=== PATIENT | male | born 1945 | race Asian ===

== ENCOUNTER 2019-07-24 07:51 | Outpatient (CLI) | payer OTHER ==
--- NOTE | 2019-07-24 10:58 | CT Report ---
Reason: TOBACCO USE Procedure Date: 07/24/2019 Accession Number: [id number] / [id number] Procedure: CT - Low Dose Lung Cancer Screen CPT Code: Final Report FULL RESULT: EXAM CT LUNG SCREEN EXAM DATE: 07/24/2019 08:31 AM. HISTORY: 73-year-old patient with 34-jeyp-walk smoking history. Currently smoking: Yes. COMPARISON: None. TECHNIQUE: CT examination of the entire thorax without contrast was performed using low-dose technique. Thin section coronal, axial, sagittal and MIP axial images were obtained. In accordance with CT protocol optimization, one or more of the following dose reduction techniques were utilized for this exam: automated exposure control, adjustment of mA and/or KV based on patient size, or use of iterative reconstructive technique. FINDINGS: Nodules: Right upper lobe: 4 mm nodule right lung apex image 30. Right middle lobe: None. Right lower lobe: 5 mm nodule along the fissure image 102. Left upper lobe: 5 mm potentially subsolid nodule image 48. Predominantly groundglass nodule 1.9 x 1.7 cm image 66. [place] of a 3 x 3 x 1.6 cm and a 1.9 x 2.0 cm groundglass nodule, appearance potentially representing atelectasis or scarring on images 76 and 77. Left lower lobe: 4 mm nodule image 110. Emphysema: Moderate. Pleura: Unremarkable. Aorta: Unremarkable. Mediastinum: Unremarkable. Coronary calcifications: None. Other pulmonary findings: There is masslike consolidation with spiculation along the medial left lung apex inseparable from the aortic arch on noncontrast examination. It is unclear whether the finding is potentially postobstructive due to a more central mass, due to scarring or represents a primary mass. Other extrapulmonary findings: Atherosclerotic disease of the aorta. IMPRESSION: Lung-RADS ASSESSMENT CATEGORY: 4X - very suspicious. Probability of malignancy: Greater than 15%. RECOMMENDATION: Recommend PET/CT for characterization of the left lung apex masslike consolidation. If this is not possible, contrast-enhanced CT of the chest should be obtained to further delineate anatomy prior to any biopsy attempt to increase safety and efficacy. RADIA
--- NOTE | 2019-07-24 13:30 | Ultrasound Report ---
Reason: TOBACCO USE Procedure Date: 07/24/2019 Accession Number: [id number] / [id number] Procedure: US - Aorta Screening CPT Code: Final Report FULL RESULT: EXAM: AORTIC DOPPLER ULTRASOUND EXAM DATE: 07/24/2019 08:23 AM. CLINICAL HISTORY: Tobacco use. COMPARISON: None. TECHNIQUE: Real-time sonographic imaging of retroperitoneal vascular structures, including color-flow, Doppler flow and spectral analysis was performed by the motor vehicle or caravan salesperson. Multiple inside technical sales representative static images were saved for review. FINDINGS: Aorta: Fusiform aneurysmal dilation of a 7.6 cm long segment of distal infrarenal abdominal aorta. Eccentric thrombus is noted in the lumen. Maximal transverse diameter measures 4.7 x 4.6 cm. Atheromatous plaques are noted. Aorta: Proximal: Sagittal AP 2.7 cm. Mid: Transverse 1.8 x 2.1 cm. Distal: Transverse 4.7 x 4.6 cm. Length of the aneurysm measures 7.6 cm. Caliber: WNL: Yes. Plaque visualized: Yes. Iliacs: Right Iliac: Transverse 2.0 x 2.5 cm. Left Iliac: Transverse 2.1 x 2.0 cm. Iliac Vessels: The visualized proximal common iliac arteries are normal in caliber. Other: None. IMPRESSION: 1. Fusiform infrarenal abdominal aortic aneurysm measures 4.7 x 4.6 cm and measures 7.6 cm in length. Recommend follow-up ultrasound in 6 months to document stability. 2. 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 (Aneurysm defined as greater than 2.5 cm in diameter). Iliac artery aneurysm/ectasia can be further evaluated at the same time is abdominal aortic aneurysm. 3. Mid and proximal aorta are normal in caliber. Atheromatous plaques are noted. RADIA
== END 2019-07-24 07:52 | disposition home or self-care (01) ==
LOC: DI 07:51
PROVIDERS: ATTEND Physician Assistant
DX: Z13.6 Encounter for screening for cardiovascular disorders (principal); Z12.2 Encounter for screening for malignant neoplasm of respiratory organs; F17.210 Nicotine dependence, cigarettes, uncomplicated
CPT/HCPCS: 76706; G0297

== ENCOUNTER 2019-07-31 14:17 | Inpatient (IN) | payer OTHER ==
--- NOTE | 2019-07-31 14:36 | ED Physician Documentation ---
History of Present Illness - Stated complaint Stated Complaint: L SIDE WEAKNESS/NUMBNESS - History obtained from History obtained from: Patient - History of Present Illness Timing: How many days ago (2) - Additonal information Additional information: This is a 73-year-old who presents with his complaints that Tuesday he was unable to lift up his left arm and has weakness in the left leg. He is pretty sure he had a stroke. [facility] come [facility] to be evaluated. Things are improving now in the left arm. No history of stroke. The patient has been getting around at home with his supporting him. He is even been going up and down the stairs even though he has weakness in the left leg. He notes that things are improving since they started because on Tuesday if he just lifted his left arm up and let it go it would drop heavily back down to the bed but now he can count is supported and drift it down. He had a headache of the day that this started 2 days ago and he is feeling dizzy when he stands up but he has not had any nausea or vomiting. One point he did fall and hit his head against the wall but he did not blackout. He denies chest pain or palpitations. No history of DVT. Review of Systems Constitutional: denies: Fever Eyes: reports: Other (Patient wears glasses). denies: Loss of vision Throat: denies: Sore throat Cardiac: denies: Chest pain / pressure, Palpitations, Pedal edema Respiratory: denies: Dyspnea, Cough GI: denies: Abdominal Pain, Nausea, Vomiting : denies: Dysuria Musculoskeletal: denies: Neck pain, Back pain Neurologic: reports: Focal weakness (Left arm and left leg weakness), Near syncope, Headache (Now resolved). denies: Confused, Altered mental status Endocrine: reports: Other (He is not diabetic) PD PAST MEDICAL HISTORY - Allergies Allergies/Adverse Reactions: Allergies Allergy/AdvReac Type Severity Reaction Status Date / Time No Known Drug Allergies Allergy Verified 07/31/19 14:31 PD ED PE NORMAL - Vitals Vital signs reviewed: Yes - General General: Alert and oriented X 3, No acute distress, Well developed/nourished - HEENT HEENT: Atraumatic - Neck Neck: No adenopathy - Cardiac Cardiac: RRR, No murmur, Strong equal pulses - Respiratory Respiratory: No respiratory distress, Clear bilaterally - Abdomen Abdomen: Normal bowel sounds, Soft - Derm Derm: Normal color, Warm and dry, No rash - Extremities Extremities: No deformity, No edema - Neuro Neuro: Alert and oriented X 3, program director scouting 2-12 intact, No sensory deficit, Normal speech, Other (He is able to platemaker my fingers with both hands. He cannot lift his left arm off the bed but if I raise it and let it go it drift slowly back down to the bed. He is able to lift the left leg off the bed, bu no thold it off the bed. He is able to lift the right leg up and keep it up for 5 seconds and the right arm for 10 seconds.) - Psych Psych: Normal mood, Normal affect Results - Vitals Vitals: Vital Signs - 24 hr 07/31/19 07/31/19 07/31/19 14:31 14:35 15:05 Temperature 37.1 C Heart Rate 72 72 69 Respiratory 22 22 14 Rate Blood Pressure 176/98 H 176/98 H 151/98 H O2 Saturation 96 96 96 Oxygen O2 Source Room air - Labs Labs: Laboratory Tests 07/31/19 07/31/19 07/31/19 14:51 14:51 14:51 WBC 8.2 RBC 4.16 L Hgb 13.3 L Hct 40.9 L MCV 98.3 H MCH 32.0 H MCHC 32.5 RDW 14.8 Plt Count 215 MPV 10.1 Neut # (Auto) 5.9 Lymph # (Auto) 1.6 [place] # (Auto) 0.5 Eos # (Auto) 0.1 Baso # (Auto) 0.0 Absolute Nucleated RBC 0.00 Nucleated RBC % 0.0 PT 12.5 INR 1.1 Sodium 138 Potassium 3.9 Chloride 103 Carbon Dioxide 23 Anion Gap 12.0 BUN 28 H Creatinine 1.6 H Estimated GFR (MDRD) 42 L Glucose 103 H Calcium 9.3 Total Bilirubin 0.6 AST 22 ALT 18 Alkaline Phosphatase 48 Total Protein 7.9 Albumin 4.4 Globulin 3.5 Albumin/Globulin Ratio 1.3 Lipase 47 - Rads (name of study) ct head Radiology: See rad report (2.8 cm right parietal infarct with mild mass-effect.) CXR Radiology: EMP read contemporaneously, See rad report (The aorta appears to be dilated. No acute infiltrate.) PD MEDICAL DECISION MAKING - ED course Complexity details: reviewed results, re-evaluated patient, d/w patient, d/w family, d/w loans consultant ED course: The patient does have some renal insufficiency. He is not anemic. He does have some left-sided deficits that he states are actually improving from their onset time on Tuesday. He certainly not a candidate for thrombolytics given the length of time that this stroke occurred. CT confirms a right parietal infarct consistent with his symptoms. Discussed with the hospitalist and the patient will be admitted for acute stroke. Results were discussed with him and his . Departure - Departure Disposition: 66 [facility] DC/Xfer Clinical Impression: Cerebrovascular accident (CVA) Qualifiers: CVA mechanism: unspecified Qualified Code(s): I63.9 - Cerebral infarction, unspecified Condition: Good Discharge Date/Time: 07/31/19 16:16
--- NOTE | 2019-07-31 14:56 | CT Report ---
Reason: neuro deficit Procedure Date: 07/31/2019 Accession Number: [id number] / [id number] Procedure: CT - Head W/O Stroke Protocol CPT Code: Final Report FULL RESULT: EXAM: CT HEAD EXAM DATE: 07/31/2019 02:41 PM. CLINICAL HISTORY: Neuro deficit. COMPARISON: None. TECHNIQUE: Multiaxial CT images were obtained from the foramen magnum to the vertex. Reformats: Sagittal and coronal. IV contrast: None. In accordance with CT protocol optimization, one or more of the following dose reduction techniques were utilized for this exam: automated exposure control, adjustment of mA and/or KV based on patient size, or use of iterative reconstructive technique. FINDINGS: Parenchyma: There is no hemorrhage. There is a 1.9 x 2.8 cm area of low density in the peripheral right parietal lobe. There are areas of low density involving white matter of the cerebral hemispheres. Extraaxial Spaces: Normal for age. No subdural or epidural collections identified. Ventricles: Normal in size and position. Sinuses and Orbits: Imaged paranasal sinuses, orbits, and mastoids show no significant abnormality. Bones: No evidence of fracture or calvarial defect. Other: None. IMPRESSION: F 1. Well-visualized 2.8 cm right parietal infarct with mild mass-effect concerning for acute infarct (imaging time estimate 2-7 days post Ictus). 2. Moderate microvascular white matter disease. RADIA The critical test notification system was initiated by Dr. Miguel Hendrix at 02:51 PM on 07/31/2019. The above critical test findings were discussed with Dr. Benedict by Dr. Miguel Hendrix at 02:55 PM on 07/31/2019.
[2019-07-31 14:57] LABS: BASOPHILS % (AUTO) 0.5 %; EOSINOPHILS # (AUTO) 0.1 10^3/uL (0.0-0.7); EOSINOPHILS % (AUTO) 1.2 %; HGB - HEMOGLOBIN 13.3 g/dL (14.0-18.0); LYMPHOCYTES # (AUTO) 1.6 10^3/uL (1.5-3.5); LYMPHOCYTES % (AUTO) 19.3 %; MEAN CORPUSCULAR HGB CONC 32.5 g/dL (32.0-36.0); MEAN CORPUSCULAR VOLUME 98.3 fL (80.0-94.0); MEAN PLATELET VOLUME 10.1 fL (7.4-11.4); MONOCYTES # (AUTO) 0.5 10^3/uL (0.0-1.0); MONOCYTES % (AUTO) 6.5 %; NEUTROPHILS # (AUTO) 5.9 10^3/uL (1.5-6.6); NEUTROPHILS % (AUTO) 72.3 %; PLT - PLATELET COUNT 215 10^3/uL (130-450); RED BLOOD COUNT 4.16 10^6/uL (4.70-6.10); RED CELL DISTRIBUTION WIDTH 14.8 % (12.0-15.0); WHITE BLOOD COUNT 8.2 x10^3/uL (4.8-10.8)
[2019-07-31 15:10] LABS: ALBUMIN 4.4 g/dL (3.2-5.5); ALBUMIN/GLOBULIN RATIO 1.3 (1.0-2.2); BILIRUBIN,TOTAL 0.6 mg/dL (0.2-1.0); CALCIUM 9.3 mg/dL (8.5-10.3); CREATININE 1.6 mg/dL (0.6-1.2); TOTAL PROTEIN 7.9 g/dL (6.7-8.2)
[2019-07-31 15:13] LABS: INR 1.1 (0.8-1.2); PT - PROTHROMBIN TIME 12.5 secs (9.9-12.6)
--- NOTE | 2019-07-31 15:28 | XRAY Report ---
Reason: chest pain Procedure Date: 07/31/2019 Accession Number: [id number] / [id number] Procedure: XR - Chest 1 View X-Ray CPT Code: 57196 Final Report FULL RESULT: EXAM: CHEST RADIOGRAPHY EXAM DATE: 07/31/2019 03:16 PM. CLINICAL HISTORY: Chest pain. COMPARISON: SHOULDER 3 VIEW LT 10/26/2018 3:11 PM CHEST SCREEN LOW DOSE W/O 07/24/2019 8:13 AM. TECHNIQUE: 1 view. FINDINGS: Lungs/Pleura: No focal opacities evident. No pleural effusion. No pneumothorax. Mediastinum: Heart size is within normal limits. There is aneurysmal dilatation of the descending thoracic aorta. Other: None. IMPRESSION: 1. Heart size is within normal limits. There is aneurysmal dilatation of the descending thoracic aorta. 2. No evidence of lobar infiltrate or effusion. 3. No pneumothorax. RADIA
[2019-07-31] MEDS ORDERED: ONDANSETRON 4 MG/2 ML VIAL IVP PRN (15:34)
[2019-07-31] MEDS ORDERED: SODIUM CHLORIDE FLUSH 0.9% 10 ML SYRINGE IVP PRN (15:34)
[2019-07-31] MEDS ORDERED: ZOLPIDEM 5 MG TABLET PO PRN (15:34)
[2019-07-31] MEDS ORDERED: hydrALAZINE INJ 20 MG/ML VIAL IVP PRN ×2 (15:41→19:29)
--- NOTE | 2019-07-31 17:14 | HISTORY & PHYSICAL EXAMINATION ---
Chief Complaint - Chief Complaint Chief Complaint: left sife weakness, stroke History of Present Illness - History of Present Illness HPI Comment/Other: This is a 73-yrs-old male with recently found pulmonary nodule and abdominal aortic aneurysm in which pt report he followup his PCP for further management, who present ER complain of left side weakness. pt report he had left side weakness and facial droop on 07/29/2019, he report he is pretty sure he had a stroke. He report [facility] come in [facility] to be evaluated. Finally he got [facility] today, then he came to hospital. He report "whole things are improving now", special in the left upper extremity. He is even been going up and down the stairs even though he has weakness in the left leg. CT of head today reveal 2.8 cm right parietal infarct. Route lab reveals pt has elevated creatinine 1.6. pt also has elevated BP otherwise pt is hemodynamic stable. He denies chest pain, back pain, abdominal pain, headache, fever, chill, or shortness of breath. pt is admitted for stroke History - Past Medical History Cardiovascular: reports: None Respiratory: reports: None Neuro: reports: CVA Endocrine/Autoimmune: reports: None GI: reports: None : reports: None HEENT: reports: None Psych: reports: None Musculoskeletal: reports: None Derm: reports: None MRSA Hx?: No - Family & Social History Family History: Mother: , Cancer, Father: , Renal Disease/Failure Family History Comment/Other: pt report his father from kidney failure, and his mother from colon cancer. pt had 7 children. Living arrangement: At home Living Situation: With spouse/s.o. Social History Notes: pt report he is still on cigarette smoker, he denies alcohol and drug issue. - POLST Patient has POLST: No Meds/Allgy - Allergies Allergies/Adverse Reactions: Allergies Allergy/AdvReac Type Severity Reaction Status Date / Time No Known Drug Allergies Allergy Verified 07/31/19 14:31 Review of Systems - Constitutional Constitutional: denies: Fatigue, Fever, Chills, Malaise, Weakness, Poor appetite, Diaphoresis, Night sweats - Eyes Eyes: denies: Pain, Irritation, Amaurosis, Blurred vision, Spots in vision, Field loss, Vision loss, Dipolpia - Ears, Nose & Throat Ears, Nose & Throat: denies: Ear pain, Hearing loss, Hearing aids, Tinnitus, Vertigo, Nasal pain, Nosebleeds, Nasal obstruction, Nasal congestion, Postnasal drainage, Mouth lesions, Bleeding gums - Cardiovascular Cariovascular: denies: Irregular heart rate, Palpitations, Chest pain, Edema, Lightheadedness, Syncope, Exertional dyspnea, Decr. exercise tolerance - Respiratory Respiratory: denies: Cough, Sputum production, Wheezing, Snoring, Hemoptysis, Orthopnea, SOB at rest, SOB with exertion - Gastrointestinal Gastrointestinal: denies: Abdominal pain, Abdominal distention, Constipation, Diarrhea, Change in bowel habits, Rectal bleeding, Black stools, Bloody stools, Nausea, Vomiting, Bile emesis, Coffee grounds emesis - Genitourinary Genitourinary: denies: Dysuria, Frequency, Urgency, Hematuria, Incontinence, F lank pain, Nocturia, Urethral discharge - Musculoskeletal Musculoskeletal: denies: Muscle pain, Back pain, Muscle aches, Stiffness, Limited range of motion, Muscle weakness, Gout, Joint pain, Joint swelling - Integumentary Integumentary: denies: Rash, Pruritis, Lesions, Dryness, Lumps, Acne, Pigment changes, Nail changes - Neurological Neurological: reports: Focal weakness, Abnormal gait. denies: General weakness, Headache, Dizziness, Numbness, Memory problems, Pre-existing deficit, Seizures, Incoordination, Slurred speech - Psychiatric Psychiatric: denies: Depression, Anxiety, Suicidal, Delusions, Hallucinations, Homicidal - Endocrine Endocrine: denies: Polyuria, Polydypsia, Polyphagia, Intolerance to cold - Hematologic/Lymphatic Hematologic/Lymphatic: denies: Anemia, Bruising, Petechiae, Blood clots, Lymphadenopathy, Bleeding tendencies Exam - Vital Signs Vital Signs: Vital Signs x48h Temp Pulse Pulse Resp BP BP Pulse Ox 07/31/19 16:22 36.5 C 74 24 171/96 H 98 07/31/19 16:00 69 18 170/100 H 96 07/31/19 15:05 69 14 151/98 H 96 07/31/19 14:35 72 22 176/98 H 96 07/31/19 14:31 37.1 C 72 22 176/98 H 96 - Physical Exam General Appearance: positive: No acute distress, Alert. negative: Lethargic Eyes Bilateral: positive: Normal inspection, PERRL, No lid inflammation ENT: positive: ENT inspection nml, Pharynx nml, No signs of dehydration. negative: Purulent nasal drainage Neck: positive: Nml inspection, Thyroid nml, No JVD, Trachea midline. negative: Thyromegaly, Lymphadenopathy (R), Lymphadenopathy (L), Stiff neck, Tracheal deviation Respiratory: positive: Chest non-tender, No respiratory distress, Breath sounds nml. negative: Wheezes, Rales, Rhonchi Cardiovascular: positive: Regular rate & rhythm, No murmur, No gallop. negative: Irregularly irregular, Extrasystoles, Tachycardia, Bradycardia, JVD present, Systolic murmur, Diastolic murmur Peripheral Pulses: positive: 2+ Abdomen: positive: Non-tender, No organomegaly, Nml bowel sounds, No distention. negative: Tenderness, Guarding, Rebound Back: positive: Nml inspection. negative: CVA tenderness (R), CVA tenderness (L) Skin: positive: Color nml, No rash, Warm, Dry. negative: Cyanosis, Diaphoresis, Pallor Extremities: positive: Non-tender, Nml appearance. negative: Full ROM, No pedal edema, Pedal edema, Calf tenderness, Gerry's sign/cords Neurologic/Psychiatric: positive: Oriented x3, Mood/affect nml, Weakness, Sensory loss. negative: Motor nml, Sensation nml, Facial droop, Slurred/abnml speech, Depressed mood/affect Sepsis Event Note (H) - Evaluation Current Stage of Sepsis: Ruled out Conclusion/Plan - Problem List (1) Cerebrovascular accident (CVA) Conclusion/Plan: pt present persistent left side weakness. unfortunately this happened three days ago. CT of head reveals right parietal infarct. order: ECHO, US of carotid since pt's GFR is lower, not for CTA. and MRI of brain start Aspirin, Plavix and Lipitor consult with PT/OT check Lipid panel and lab monitor Qualifiers: CVA mechanism: unspecified Qualified Code(s): I63.9 - Cerebral infarction, unspecified (2) Hx of aneurysm Conclusion/Plan: pt had US and CT of chest done on 07/24/2019 by his PCP which found 4.7 cm AAA aneurysm with mild and proximal aorta are normal, recommended to pt followup in 6 months. pt report he knew this information, and will followup the appointment. (3) Hx of multiple pulmonary nodules Conclusion/Plan: pt had CT of chest done on 07/24/2019 by his PCP which found pt had multiple nodules in bilateral lung. pt report he knew this information, and will followup PCP for further management. (4) Current smoker Conclusion/Plan: pt report he is still in smoking. Nicotine Patch is ordered (5) HTN (hypertension) Conclusion/Plan: pt has slight elevated BP, it is likely caused by his acute stroke. allow BP rise, add hydrazaline PRN but will control BP because pt has AAA as well. (6) CKD (chronic kidney disease) stage 3, GFR 30-59 ml/min Conclusion/Plan: pt is not well known he has CKD but he report "he heard". his creatinine is 1.6 today. will hydration with IVF of NS, and lab monitor (7) Full code status Conclusion/Plan: pt request full code - Lab Results Fish Bones: 08/01/19 05:05 08/01/19 05:05 Core Measures - Anticipated LOS I expect patient to be DC'd or transferred within 96 hours.: Yes - DVT/VTE - Prophylaxis VTE/DVT Device ordered at admit?: Yes VTE/DVT Prophylaxis med ordered at admit?: Yes
[2019-07-31] MEDS: ASPIRIN CHEW 81 MG TABLET PO SCH (17:17)
[2019-07-31] MEDS: amLODIPine 5 MG TABLET PO SCH (17:17)
[2019-07-31] MEDS: CLOPIDOGREL 75 MG TABLET PO SCH (17:17)
[2019-07-31] MEDS: SODIUM CHLORIDE 0.9% 1,000 ML IV SCH (17:17)
[2019-07-31] MEDS: SODIUM CHLORIDE FLUSH 0.9% 10 ML SYRINGE IVP SCH ×2 (17:18→23:23)
--- NOTE | 2019-07-31 20:28 | MRI Report ---
Reason: stroke Procedure Date: 07/31/2019 Accession Number: [id number] / [id number] Procedure: MRI - Brain W/O CPT Code: Final Report FULL RESULT: EXAM: MRI BRAIN WITHOUT CONTRAST EXAM DATE: 07/31/2019 07:29 PM. CLINICAL HISTORY: Stroke. Right parietal stroke noted on CT scan. COMPARISON: HEAD W/O STROKE PROTOCOL 07/31/2019 2:41 PM. TECHNIQUE: Multiplanar, multisequence T1-weighted and fluid-sensitive MR sequences of the brain were performed. Sequences optimized for routine evaluation. Other: None. IV Contrast: None. FINDINGS: (Study is somewhat limited by motion artifact.) Brain Volume: Normal for age. Parenchyma/Dura: Cortical and subcortical acute infarct is seen in the posterolateral right parietal lobe with patchy extension into the paracentral lobule. Subtle mild inferior extension posteriorly into the superior occipital lobe is seen. Punctate cortical extension superomedially into the high medial paracentral lobule is seen. Otherwise, mild confluent periventricular with scattered punctate deep white matter T2/FLAIR bright signal is seen in the cerebral hemispheres. There is an oval 6 mm cystic focus in the anterior body of the right caudate nucleus. No intracranial mass or hemorrhage is appreciated. Ventricles/Cisterns: No hydrocephalus. No abnormal extra-axial fluid collection or hemorrhage. No shift of midline structures. Orbits: Unremarkable. Sella [place]: Unremarkable. IAC: Unremarkable. Vasculature: Normal signal flow void is seen in the major arterial structures at the skull base. Sinuses: No acute appearing sinus disease. Bones: No focal pathologic appearing marrow signal changes. Other: None. IMPRESSION: (Study somewhat limited by motion artifact.) 1. Acute infarct in posterior division right MCA territory involving the posterolateral parietal lobe with patchy extension to the high paracentral lobule. Minimal inferior extension posteriorly into the superior occipital lobe is noted, which may be SENIOR BIOINFORMATICS SPECIALIST vascular territory. Apparent punctate superomedial extension in the high medial paracentral lobule is noted as well, which may be distal DYLON vascular territory. This may be secondary to embolic source. 2. Mild white matter T2/FLAIR bright white matter signal seen in the cerebral hemispheres. This is nonspecific. This can be seen secondary to small vessel ischemic change. 3. Oval 6 mm cystic focus in the anterior body of the right caudate nucleus. This is consistent with old lacunar infarct. RADIA
[2019-07-31] MEDS: ACETAMINOPHEN 325 MG TABLET PO PRN (20:55)
[2019-07-31] MEDS: FAMOTIDINE 20 MG TABLET PO SCH (20:55)
[2019-07-31] MEDS ORDERED: ATORVASTATIN 40 MG TABLET PO SCH (21:00)
--- NOTE | 2019-08-01 00:09 | Ultrasound Report ---
Reason: stroke Procedure Date: 07/31/2019 Accession Number: [id number] / [id number] Procedure: US - Carotid Doppler Complete CPT Code: Final Report FULL RESULT: EXAM: BILATERAL CAROTID AND VERTEBRAL ARTERY DUPLEX DOPPLER ULTRASOUND. EXAM DATE: 07/31/2019 11:20 PM. CLINICAL HISTORY: Stroke. COMPARISON: None. TECHNIQUE: Grayscale imaging, color Doppler, and duplex spectral Doppler were used to evaluate the carotid and vertebral arteries bilaterally. Static images were obtained. FINDINGS: Mild plaquing in the common carotid arteries, carotid bifurcations, and proximal internal carotid arteries bilaterally. Normal antegrade flow is present in bilateral vertebral arteries. VELOCITIES (cm/sec): Right CCA mid: PSV 37 cm/sec CCA dist: PSV 58 cm/sec ICA prox: PSV 129 cm/sec, EDV 27 cm/sec ICA mid: PSV 97 cm/sec, EDV 33 cm/sec ICA dist: PSV 103 cm/sec, EDV 30 cm/sec ECA: PSV 75 cm/sec Vert: PSV 34 cm/sec ICA/CCA: 2.2 Left CCA mid: PSV 68 cm/sec CCA dist: PSV 54 cm/sec ICA prox: PSV 86 cm/sec, EDV 28 cm/sec ICA mid: PSV 88 cm/sec, EDV 29 cm/sec ICA dist: PSV 56 cm/sec, EDV 20 cm/sec ECA: PSV 67 cm/sec Vert: PSV 31 cm/sec ICA/CCA: 1.3 ICA diameter stenosis: Right: 50-69% by velocity and <70% by NASCET criteria. Left: <50% by velocity and <70% by NASCET criteria. IMPRESSION: 1. Mild bilateral carotid artery plaquing. 2. In the proximal right internal carotid artery there is slightly elevated velocity and systolic velocity ratio consistent with 50-69% stenosis. This could also be artifact related to tortuosity. 3. In the left carotid artery there are no elevated carotid artery velocities to suggest hemodynamically significant stenosis. 4. Normal antegrade flow is present in bilateral vertebral arteries. General Recommendations: Stenosis =50% ICA - Follow-up ultrasound 6-12 months Stenosis <50% ICA - High Risk Patient with plaque - Follow-up ultrasound 1-2 years Normal Study but High Risk Patient - Follow-up ultrasound 3-5 years Management recommendations and diagnostic criteria are based on current IAC endorsed standards in Carotid Artery Stenosis: Grayscale and Doppler Ultrasound Diagnosis. Validated velocity measurements with angiographic measurements and velocity criteria are extrapolated from diameter data as defined by the Society of Radiologists in Ultrasound Consensus Conference Radiology 2003; 229;340-346. RADIA
[2019-08-01] MEDS: SODIUM CHLORIDE 0.9% 1,000 ML IV SCH (04:16)
[2019-08-01 05:34] LABS: BASOPHILS % (AUTO) 0.3 %; EOSINOPHILS # (AUTO) 0.3 10^3/uL (0.0-0.7); EOSINOPHILS % (AUTO) 3.2 %; HGB - HEMOGLOBIN 12.2 g/dL (14.0-18.0); LYMPHOCYTES % (AUTO) 22.3 %; MEAN CORPUSCULAR HEMOGLOBIN 31.3 pg (27.0-31.0); MEAN CORPUSCULAR HGB CONC 32.8 g/dL (32.0-36.0); MEAN CORPUSCULAR VOLUME 95.4 fL (80.0-94.0); MEAN PLATELET VOLUME 9.4 fL (7.4-11.4); MONOCYTES # (AUTO) 0.7 10^3/uL (0.0-1.0); MONOCYTES % (AUTO) 8.2 %; NEUTROPHILS # (AUTO) 5.7 10^3/uL (1.5-6.6); NEUTROPHILS % (AUTO) 65.7 %; PLT - PLATELET COUNT 169 10^3/uL (130-450); RED CELL DISTRIBUTION WIDTH 14.5 % (12.0-15.0); WHITE BLOOD COUNT 8.7 x10^3/uL (4.8-10.8)
[2019-08-01 05:53] LABS: CALCIUM 8.8 mg/dL (8.5-10.3); CHOLESTEROL 114 mg/dL; CREATININE 1.5 mg/dL (0.6-1.2); HDL CHOLESTEROL 38 mg/dL; LDL CHOLESTEROL,CALCULATED 60 mg/dL; LDL/HDL RATIO 1.6 (<3.6); MAGNESIUM 2.1 mg/dL (1.7-2.8); VLDL CHOLESTEROL 16 mg/dL
[2019-08-01] MEDS: ACETAMINOPHEN 325 MG TABLET PO PRN (06:39)
[2019-08-01] MEDS: FAMOTIDINE 20 MG TABLET PO SCH (08:07)
[2019-08-01] MEDS: amLODIPine 5 MG TABLET PO SCH (08:07)
[2019-08-01] MEDS: ASPIRIN CHEW 81 MG TABLET PO SCH (08:07)
[2019-08-01] MEDS: CLOPIDOGREL 75 MG TABLET PO SCH (08:07)
[2019-08-01] MEDS: SODIUM CHLORIDE FLUSH 0.9% 10 ML SYRINGE IVP SCH (08:08)
[2019-08-01] MEDS ORDERED: NICOTINE 14 MG PATCH TOP SCH (12:00)
[2019-08-01] MEDS ORDERED: hydrALAZINE INJ 20 MG/ML VIAL IVP PRN (13:07)
--- NOTE | 2019-08-01 13:23 | Discharge Plan ---
Discharge Plan Problem Reviewed?: Yes Disposition: Home, Self Care Condition: Poor Prescriptions: Aspirin Chewable [St Ernie Aspirin] 81 mg PO DAILY #10 tablet Atorvastatin [Lipitor] 40 mg PO QPM #10 tablet Clopidogrel [Plavix] 75 mg PO DAILY #10 tablet Diet: Regular Activity Restrictions: Activity as Tolerated Shower Restrictions: Yes (fall precaution) Assistance Devices: Walker Instruction Topics: Atorvastatin tablets, Clopidogrel Bisulfate Oral tablet, Atherosclerosis Aspirin Health Concerns: stroke, pulmonary nodules and AAA Plan of Treatment: you was found to have stroke. Per PT/OT evaluation and treatment, you recovered well from stroke, and you can be d/c today. you is prescribed walker, and three medication, Aspirin, Plavix, and Lipitor for your stroke, and recommended you followup out-pt PT/OT. you report he had the schedule to followup your PCP for continuing monitor and management for your pulmonary nodules, and aorta aneurysm. advise you followup closely. Care Goals: stabilization and improvement of your medical conditions. Assessment: discussed with you and your about the care plan, you understood. Additional Instructions or Follow Up instructions: you may followup your PCP in one week, followup entry level buyer and vascular surgeon as out-pt. Should your symptoms return or worsen, you may present ER or call 911 for help. Follow-Up Care: Outpatient Rehab - PT, Outpatient Rehab - OT No Smoking: If you smoke, Please STOP! Call for help. Follow-up with: JYOTHI CARDONA NP [Primary Care Provider] -
[2019-08-01 14:03] VITALS: BP 156/82
--- NOTE | 2019-08-01 14:08 | DISCHARGE SUMMARY ---
Discharge Summary Admit Date: 07/31/19 Discharge Date: 08/01/19 Discharging Provider: Huang Somers Condition at Discharge: Poor Discharge Disposition: Home, Self Care Discharge Facility Name: home - DIAGNOSES Admission Diagnoses: (1) Cerebrovascular accident (CVA) (2) Hx of aneurysm (3) Hx of multiple pulmonary nodules (4) Current smoker (5) HTN (hypertension) (6) CKD (chronic kidney disease) stage 3, GFR 30-59 ml/min Discharge Diagnoses with Status of Each Condition: (1) Cerebrovascular accident (CVA) stable. pt recovered very well from his stroke. the only focal neurological de ficit remain from this stroke is he present slight weakness on his left lower extremity. PT/OT had evaluation and treatment for pt, and recommend pt can be d/c to home. pt is prescribed walker. pt is prescribed Aspirin, Plavix and lipitor. (2) Hx of aneurysm stable. pt is advised to followup his PCP and vascular surgeon to continue management. he had appointment to followup per pt's report. (3) Hx of multiple pulmonary nodules stable. pt is advised to followup his PCP and vascular surgeon to continue management. he had appointment to followup per pt's report. (4) Current smoker advise pt quit (5) HTN (hypertension) stable (6) CKD (chronic kidney disease) stage 3, GFR 30-59 ml/min stable - HPI History of Present Illness: This is a 73-yrs-old male with recently found pulmonary nodule and abdominal aortic aneurysm in which pt report he followup his PCP for further management, who present ER complain of left side weakness. pt report he had left side weakness and facial droop on 07/29/2019, he report he is pretty sure he had a stroke. He report [facility] to be [facility]. Finally he [facility] today, then he came to hospital. He report "whole things are improving now", special in the left upper extremity. He is even been going up and down the stairs even though he has weakness in the left leg. CT of head today reveal 2.8 cm right parietal infarct. Route lab reveals pt has elevated creatinine 1.6. pt also has elevated BP otherwise pt is hemodynamic stable. He denies chest pain, back pain, abdominal pain, headache, fever, chill, or shortness of breath. pt is admitted for stroke - HOSPITAL COURSE Hospital Course: pt was found to have left side weakness started from three days ago. pt was found to have stroke on CT and MRI of brain. pt's ECHO was unremarkable. pt recovered from his stroke very well. the only focal neurological deficit remain from this stroke is he present slight weakness on his left lower extremity. PT/OT had evaluation and treatment for pt, and recommend pt can be d/c to home. pt is prescribed walker. pt is prescribed Aspirin, Plavix and lipitor. the detail hospital course is as the below (1) Cerebrovascular accident (CVA) stable. pt recovered very well from his stroke. the only focal neurological deficit remain from this stroke is he present slight weakness on his left lower extremity. PT/OT had evaluation and treatment for pt, and recommend pt can be d/c to home. pt is prescribed walker. pt is prescribed Aspirin, Plavix and lipitor. (2) Hx of aneurysm stable. pt is advised to followup his PCP and vascular surgeon to continue management. he had appointment to followup per pt's report. (3) Hx of multiple pulmonary nodules stable. pt is advised to followup his PCP and vascular surgeon to continue management. he had appointment to followup per pt's report. (4) Current smoker advise pt quit (5) HTN (hypertension) stable (6) CKD (chronic kidney disease) stage 3, GFR 30-59 ml/min stable - ALLERGIES Allergies/Adverse Reactions: Allergies Allergy/AdvReac Type Severity Reaction Status Date / Time No Known Drug Allergies Allergy Verified 07/31/19 14:31 - MEDICATIONS Home Medications: Ambulatory Orders Medication Instructions Recorded Confirmed Alfuzosin HCl [Alfuzosin HCl ER] 10 mg PO DAILY 08/01/19 08/01/19 Allopurinol [Zyloprim] 300 mg PO DAILY 08/01/19 08/01/19 Aspirin Chewable [St Ernie 81 mg PO DAILY #10 tablet 08/01/19 Aspirin] Atorvastatin [Lipitor] 40 mg PO QPM #10 tablet 08/01/19 Clopidogrel [Plavix] 75 mg PO DAILY #10 tablet 08/01/19 Metoprolol Succinate [Toprol Xl] 100 mg PO DAILY 08/01/19 08/01/19 - PHYSICAL EXAM AT DISCHARGE General Appearance: positive: No acute distress, Alert. negative: Lethargic Eyes Bilateral: positive: Normal inspection, PERRL, EOMI, No lid inflammation ENT: positive: ENT inspection nml, Pharynx nml, No signs of dehydration. negative: Purulent nasal drainage Neck: positive: Nml inspection, Thyroid nml, No JVD, Trachea midline. negative: Thyromegaly, Lymphadenopathy (R), Lymphadenopathy (L), Stiff neck, Tracheal deviation Respiratory: positive: Chest non-tender, No respiratory distress, Breath sounds nml. negative: Wheezes, Rales, Rhonchi Cardiovascular: positive: Regular rate & rhythm, No murmur, No gallop. negative: Irregularly irregular, Extrasystoles, Tachycardia, Bradycardia, JVD present, Systolic murmur, Diastolic murmur Peripheral Pulses: positive: 2+ Abdomen: positive: Non-tender, No organomegaly, Nml bowel sounds, No distention. negative: Tenderness, Guarding, Rebound Back: positive: Nml inspection. negative: CVA tenderness (R), CVA tenderness (L) Skin: positive: Color nml, No rash, Warm, Dry. negative: Cyanosis, Diaphoresis, Pallor Extremities: positive: Non-tender, Nml appearance. negative: Calf tenderness, Gerry's sign/cords Neurologic/Psychiatric: positive: Oriented x3, Sensation nml, Mood/affect nml, Weakness. negative: Motor nml, Sensory loss, Facial droop, Slurred/abnml speech, Depressed mood/affect - LABS Result Diagrams: 08/01/19 05:05 08/01/19 05:05 - SEPSIS Current Stage of Sepsis: Ruled out - FOLLOW UP Follow Up: you was found to have stroke. Per PT/OT evaluation and treatment, you recovered well from stroke, and you can be d/c today. you is prescribed walker, and three medication, Aspirin, Plavix, and Lipitor for your stroke, and recommended you followup out-pt PT/OT. you report he had the schedule to followup your PCP for continuing monitor and management for your pulmonary nodules, and aorta aneurysm. advise you followup closely. you may followup your PCP in one week, followup medical recruiter and vascular surgeon as out-pt. Should your symptoms return or worsen, you may present ER or call 911 for help. - TIME SPENT Time Spent in Discharge (Minutes): 40
== END 2019-08-01 14:48 | disposition home or self-care (01) | DRG 65 ==
LOC: ED 14:17 → MS2 15:34
PROVIDERS: ADMIT Nurse Practitioner Gerontology; ATTEND Nurse Practitioner Gerontology
DX: I63.511 Cerebral infarction due to unspecified occlusion or stenosis of right middle cerebral artery (principal); G81.94 Hemiplegia, unspecified affecting left nondominant side; R29.810 Facial weakness; I12.9 Hypertensive chronic kidney disease with stage 1 through stage 4 chronic kidney disease, or unspecified chronic kidney disease; N18.3 Chronic kidney disease, stage 3 (moderate); I71.2 Thoracic aortic aneurysm, without rupture; R91.8 Other nonspecific abnormal finding of lung field; F17.210 Nicotine dependence, cigarettes, uncomplicated; R90.82 White matter disease, unspecified
CPT/HCPCS: 36415; 70450; 70551; 71045; 80048; 80053; 80061; 83690; 83735; 85025; 85610; 93005; 93306; 93880; 97116; 97162; 97165; 99284; 99285; 99406; A9270; 83721

== ENCOUNTER 2022-02-09 08:43 | Observation (INO) | payer OTHER ==
[2022-02-09] MEDS ORDERED: AZITHROMYCIN INJ 500 MG in SODIUM CHLORIDE 0.9% 250 ML IV STA (08:50)
[2022-02-09] MEDS ORDERED: cefTRIAXone 1 GM in SODIUM CHLORIDE 0.9% MINIBAG 100 ML IV STA (08:50)
[2022-02-09] MEDS ORDERED: ACETAMINOPHEN 325 MG TABLET PO STA (08:51)
--- NOTE | 2022-02-09 08:51 | ED Physician Documentation ---
History of Present Illness - Stated complaint Stated Complaint: GENERAL WEAKNESS - Chief complaint Chief Complaint: Neuro - History obtained from History obtained from: Patient - History of Present Illness Timing: How many days ago (4) - Additonal information Additional information: 76-year-old male with history of hepatitis B, hypertension, hyperlipidemia, pre vious history of CVA without residual deficit presents by EMS from home for approximately 4 days of gradually worsening generalized weakness. Associated productive cough with brown sputum. Today the patient was unable to move around his house without assistance and so his called 911. In route the patient was febrile, oxygen saturation stable. at bedside states that the patient has had troubles in breathing since yesterday, and was making gasping, wheezing noises at home.Patient states that he feels fatigued all over. Denies chest pain, leg swelling, syncope, headache, blurred vision, other complaints at this time. Review of Systems Ten Systems: 10 systems reviewed and negative Constitutional: reports: Fever, Chills. denies: Myalgias Eyes: denies: Loss of vision, Decreased vision, Photophobia Ears: denies: Loss of hearing, Ear pain, Drainage/discharge Respiratory: reports: Dyspnea, Cough, Wheezing. denies: Hemoptysis GI: denies: Abdominal Pain, Abdominal Swelling, Nausea, Vomiting, Constipation, Diarrhea, Hematemesis Neurologic: reports: Generalized weakness. denies: Focal weakness, Numbness, Difficulty speaking, Near syncope PD PAST MEDICAL HISTORY - Past Medical History Cardiovascular: None Respiratory: None Neuro: None Endocrine/Autoimmune: None GI: None : None HEENT: None Psych: None Musculoskeletal: None Derm: None - Past Surgical History Past Surgical History: No - Present Medications Home Medications: Ambulatory Orders Medication Instructions Recorded Confirmed Alfuzosin HCl [Alfuzosin HCl ER] 10 mg PO DAILY 08/01/19 02/09/22 Aspirin Chewable [St Ernie 81 mg PO DAILY #10 tablet 08/01/19 02/09/22 Aspirin] Atorvastatin [Lipitor] 40 mg PO QPM #10 tablet 08/01/19 02/09/22 Clopidogrel [Plavix] 75 mg PO DAILY #10 tablet 08/01/19 02/09/22 Metoprolol Succinate [Toprol Xl] 100 mg PO DAILY 08/01/19 02/09/22 allopurinoL [Zyloprim] 300 mg PO DAILY 08/01/19 02/09/22 Ascorbic Acid [Vitamin C] 500 mg PO BID 02/09/22 02/09/22 Cholecalciferol (Vitamin D3) 1,000 units PO DAILY 02/09/22 02/09/22 [Vitamin D3] Entecavir 0.5 mg PO UD 02/09/22 02/09/22 - Allergies Allergies/Adverse Reactions: Allergies Allergy/AdvReac Type Severity Reaction Status Date / Time No Known Drug Allergies Allergy Verified 07/31/19 14:31 - Social History Does the pt smoke?: No Smoking Status: Current every day smoker Does the pt drink ETOH?: No Does the pt have substance abuse?: No - Immunizations Immunizations are current?: Yes - POLST Patient has POLST: No PD ED PE NORMAL - Vitals Vital signs reviewed: Yes - General General: Alert and oriented X 3, Well developed/nourished, Other (ill appearing) - HEENT HEENT: Atraumatic, PERRL, EOMI, Ears normal, Other (dry mucous membranes) - Neck Neck: Supple, no meningeal sign, No bony TTP, No JVD - Cardiac Cardiac: No murmur, Strong equal pulses, Other (tachycardia) - Respiratory Respiratory: Clear bilaterally, Other (tachypnea) - Abdomen Abdomen: Soft, Non tender, Non distended - Back Back: No CVA TTP, No spinal TTP - Derm Derm: Normal color, Warm and dry, No rash - Extremities Extremities: No deformity, No tenderness to palpate, Normal ROM s pain, No edema - Neuro Neuro: Alert and oriented X 3, fabricator foam rubber 2-12 intact, No motor deficit, No sensory deficit, Normal speech - Psych Psych: Normal mood, Normal affect Results - Vitals Vitals: Vital Signs - 24 hr 02/09/22 02/09/22 02/09/22 08:49 09:25 10:26 Temperature 39.2 C H 38.7 C H Heart Rate 81 67 69 Respiratory 28 H 18 26 H Rate Blood Pressure 138/101 H 143/78 H O2 Saturation 94 97 99 Oxygen O2 Source Nasal cannula Oxygen Flow Rate 2 - EKG (time done) 1018 Rate: Rate (enter#) (65) Rhythm: NSR [place]: Normal Intervals: Normal [place] QRS: Normal - Labs Labs: Laboratory Tests 02/09/22 02/09/22 02/09/22 08:50 09:10 09:10 WBC 12.6 H RBC 3.14 L Hgb 10.3 L Hct 30.9 L MCV 98.4 H MCH 32.8 H MCHC 33.3 RDW 14.9 Plt Count 141 MPV 9.5 Neut # (Auto) 10.1 H Lymph # (Auto) 1.2 L [place] # (Auto) 1.1 H Eos # (Auto) 0.1 Baso # (Auto) 0.0 Absolute Nucleated RBC 0.00 Nucleated RBC % 0.0 PT 11.7 INR 1.0 Sodium Potassium Chloride Carbon Dioxide Anion Gap BUN Creatinine Estimated GFR (MDRD) Glucose Calcium Total Bilirubin AST ALT Alkaline Phosphatase Troponin I High Sens B-Natriuretic Peptide 235 H Total Protein Albumin Globulin Albumin/Globulin Ratio Procalcitonin Urine Color Urine Clarity Urine pH Ur Specific [place] Urine Protein Urine Glucose (UA) Urine Ketones Urine Occult Blood Urine Nitrite Urine Bilirubin Urine Urobilinogen Ur Leukocyte Esterase Urine RBC Urine WBC Ur Squamous Epith Cells Urine Bacteria Ur Microscopic Review Urine Culture Comments Nasal Adenovirus (PCR) Nasal B. parapertussis DNA (PCR) Nasal Coronavir 229E PCR Nasal Coronavir HKU1 PCR Nasal Coronavir NL63 PCR Nasal Coronavir OC43 PCR Nasal Enterovir/Rhinovir PCR Nasal Influenza B PCR Nasal Influenza A PCR Nasal Parainfluen 1 PCR Nasal Parainfluen 2 PCR Nasal Parainfluen 3 PCR Nasal Parainfluen 4 PCR Nasal RSV (PCR) Nasal B.pertussis DNA PCR Nasal C.pneumoniae (PCR) Alber Human Metapneumo PCR Nasal M.pneumoniae (PCR) Nasal SARS-CoV-2 (PCR) 02/09/22 02/09/22 02/09/22 09:10 09:10 09:10 WBC RBC Hgb Hct MCV MCH MCHC RDW Plt Count MPV Neut # (Auto) Lymph # (Auto) [place] # (Auto) Eos # (Auto) Baso # (Auto) Absolute Nucleated RBC Nucleated RBC % PT INR Sodium 139 Potassium 4.1 Chloride 109 Carbon Dioxide 20 L Anion Gap 10.0 BUN 28 H Creatinine 2.6 H Estimated GFR (MDRD) 24 L Glucose 117 H Calcium 8.9 Total Bilirubin 0.5 AST 24 ALT 15 Alkaline Phosphatase 50 Troponin I High Sens 16.1 B-Natriuretic Peptide Total Protein 7.4 Albumin 4.2 Globulin 3.2 Albumin/Globulin Ratio 1.3 Procalcitonin 0.17 Urine Color Urine Clarity Urine pH Ur Specific [place] Urine Protein Urine Glucose (UA) Urine Ketones Urine Occult Blood Urine Nitrite Urine Bilirubin Urine Urobilinogen Ur Leukocyte Esterase Urine RBC Urine WBC Ur Squamous Epith Cells Urine Bacteria Ur Microscopic Review Urine Culture Comments Nasal Adenovirus (PCR) Nasal B. parapertussis DNA (PCR) Nasal Coronavir 229E PCR Nasal Coronavir HKU1 PCR Nasal Coronavir NL63 PCR Nasal Coronavir OC43 PCR Nasal Enterovir/Rhinovir PCR Nasal Influenza B PCR Nasal Influenza A PCR Nasal Parainfluen 1 PCR Nasal Parainfluen 2 PCR Nasal Parainfluen 3 PCR Nasal Parainfluen 4 PCR Nasal RSV (PCR) Nasal B.pertussis DNA PCR Nasal C.pneumoniae (PCR) Alber Human Metapneumo PCR Nasal M.pneumoniae (PCR) Nasal SARS-CoV-2 (PCR) 02/09/22 02/09/22 09:20 09:23 WBC RBC Hgb Hct MCV MCH MCHC RDW Plt Count MPV Neut # (Auto) Lymph # (Auto) [place] # (Auto) Eos # (Auto) Baso # (Auto) Absolute Nucleated RBC Nucleated RBC % PT INR Sodium Potassium Chloride Carbon Dioxide Anion Gap BUN Creatinine Estimated GFR (MDRD) Glucose Calcium Total Bilirubin AST ALT Alkaline Phosphatase Troponin I High Sens B-Natriuretic Peptide Total Protein Albumin Globulin Albumin/Globulin Ratio Procalcitonin Urine Color YELLOW Urine Clarity CLEAR Urine pH 5.5 Ur Specific [place] 1.015 Urine Protein TRACE Urine Glucose (UA) NEGATIVE Urine Ketones NEGATIVE Urine Occult Blood SMALL H Urine Nitrite NEGATIVE Urine Bilirubin NEGATIVE Urine Urobilinogen 0.2 (NORMAL) Ur Leukocyte Esterase NEGATIVE Urine RBC 0-5 Urine WBC 0-3 Ur Squamous Epith Cells RARE Squamous Urine Bacteria Rare Ur Microscopic Review INDICATED Urine Culture Comments NOT INDICATED Nasal Adenovirus (PCR) NOT DETECTED Nasal B. parapertussis DNA (PCR) NOT DETECTED Nasal Coronavir 229E PCR NOT DETECTED Nasal Coronavir HKU1 PCR NOT DETECTED Nasal Coronavir NL63 PCR NOT DETECTED Nasal Coronavir OC43 PCR NOT DETECTED Nasal Enterovir/Rhinovir PCR NOT DETECTED Nasal Influenza B PCR NOT DETECTED Nasal Influenza A PCR NOT DETECTED Nasal Parainfluen 1 PCR NOT DETECTED Nasal Parainfluen 2 PCR NOT DETECTED Nasal Parainfluen 3 PCR NOT DETECTED Nasal Parainfluen 4 PCR NOT DETECTED Nasal RSV (PCR) NOT DETECTED Nasal B.pertussis DNA PCR NOT DETECTED Nasal C.pneumoniae (PCR) NOT DETECTED Alber Human Metapneumo PCR NOT DETECTED Nasal M.pneumoniae (PCR) NOT DETECTED Nasal SARS-CoV-2 (PCR) DETECTED A PD MEDICAL DECISION MAKING - ED course Complexity details: reviewed results, re-evaluated patient, considered differential, d/w patient ED course: And ill-appearing male presenting for fever, cough, shortness of breath. Saturating well on room air, nasal cannula applied for comfort. Will empirically treat for sepsis with Rocephin and azithromycin. Patient appears dehydrated, generous fluid started. Chest x-ray surprisingly negative for acute findings. Patient has been given Tylenol for fever, it is slowly coming down. Vital signs improving with IV fluids. Labs are significant for leukocytosis, creatinine 2.6. Only previous values in her systems are from 2 years ago, patient and his deny ever having problems with his kidneys and states they have never been told the patient has kidney disease. Given that the patient presented appearing severely dehydrated we will presume this is acute. We will admit the patient for further IV hydration and treatment. Departure - Departure Disposition: 66 [facility] DC/Xfer Clinical Impression: Dehydration, COVID, BARRETT (acute kidney injury) Condition: Stable Discharge Date/Time: 02/09/22 12:07
--- NOTE | 2022-02-09 09:06 | XRAY Report ---
PROCEDURE: Chest 1 View X-Ray INDICATIONS: fever, cough TECHNIQUE: One view of the chest was acquired. COMPARISON: 07/31/2019 FINDINGS: Surgical changes and devices: None. Lungs and pleura: No pleural effusions or pneumothorax. Lungs are clear. Mediastinum: Similar mediastinal widening suggesting tortuosity, aneurysm or ectasia of the thoracic aorta. Heart size is within normal limits. Bones and chest wall: No suspicious bony lesions. Overlying soft tissues appear unremarkable. IMPRESSION: No pulmonary consolidation. Similar mediastinal widening suggesting tortuosity, aneurysm or ectasia o f the thoracic aorta. Reviewed by: Clark Quintero MD on 02/09/2022 9:04 AM PDT Approved by: Clark Quintero MD on 02/09/2022 9:04 AM PDT Station ID: [id number]
[2022-02-09 09:32] LABS: BASOPHILS % (AUTO) 0.2 %; EOSINOPHILS # (AUTO) 0.1 10^3/uL (0.0-0.7); EOSINOPHILS % (AUTO) 1.1 %; HCT - HEMATOCRIT 30.9 % (42.0-52.0); HGB - HEMOGLOBIN 10.3 g/dL (14.0-18.0); LYMPHOCYTES # (AUTO) 1.2 10^3/uL (1.5-3.5); LYMPHOCYTES % (AUTO) 9.6 %; MEAN CORPUSCULAR HEMOGLOBIN 32.8 pg (27.0-31.0); MEAN CORPUSCULAR HGB CONC 33.3 g/dL (32.0-36.0); MEAN CORPUSCULAR VOLUME 98.4 fL (80.0-94.0); MEAN PLATELET VOLUME 9.5 fL (7.4-11.4); MONOCYTES # (AUTO) 1.1 10^3/uL (0.0-1.0); MONOCYTES % (AUTO) 8.7 %; NEUTROPHILS # (AUTO) 10.1 10^3/uL (1.5-6.6); PLT - PLATELET COUNT 141 10^3/uL (130-450); RED BLOOD COUNT 3.14 10^6/uL (4.70-6.10); RED CELL DISTRIBUTION WIDTH 14.9 % (12.0-15.0); WHITE BLOOD COUNT 12.6 x10^3/uL (4.8-10.8)
[2022-02-09 09:34] LABS: BILIRUBIN,URINE NEGATIVE (NEGATIVE); GLUCOSE, URINE (UA) NEGATIVE (NEGATIVE); KETONES,URINE (UA) NEGATIVE (NEGATIVE); LEUKOCYTE ESTERASE, URINE NEGATIVE (NEGATIVE); NITRITE,URINE NEGATIVE (NEGATIVE); OCCULT BLOOD,URINE SMALL (NEGATIVE); PH,URINE 5.5 PH (5.0-7.5); PROTEIN,URINE TRACE mg/dL (NEGATIVE); UROBILINOGEN,URINE 0.2 (NORMAL) E.U./dL (NORMAL)
[2022-02-09 09:37] LABS: PT - PROTHROMBIN TIME 11.7 secs (9.9-12.6)
[2022-02-09 09:40] LABS: CLARITY,URINE CLEAR (CLEAR)
[2022-02-09 09:49] LABS: ALBUMIN 4.2 g/dL (3.2-5.5); ALBUMIN/GLOBULIN RATIO 1.3 (1.0-2.2); BILIRUBIN,TOTAL 0.5 mg/dL (0.2-1.0); CALCIUM 8.9 mg/dL (8.5-10.3); CREATININE 2.6 mg/dL (0.6-1.2); POTASSIUM 4.1 mmol/L (3.5-5.0); TOTAL PROTEIN 7.4 g/dL (6.7-8.2)
[2022-02-09 09:53] LABS: WBC,URINE 0-3 /HPF (0-3)
[2022-02-09 09:54] LABS: BACTERIA,URINE Rare /HPF (None Seen); RBC,URINE 0-5 /HPF (0-5); SQUAMOUS EPITHELIAL CELL,UR RARE Squamous (<= Few)
[2022-02-09] MEDS ORDERED: SODIUM CHLORIDE 0.9% 1,000 ML IV STA (09:56)
[2022-02-09 10:35] LABS: CORONAVIRUS 229E-RESP PCR NOT DETECTED; CORONAVIRUS HKU1-RESP PCR NOT DETECTED; CORONAVIRUS NL63-RESP PCR NOT DETECTED; CORONAVIRUS OC43-RESP PCR NOT DETECTED
[2022-02-09 10:36] LABS: B. PARAPERTUSSIS- RESP PCR PAN NOT DETECTED; B. PERTUSSIS- RESP PCR PANEL NOT DETECTED; C. PNEUMONIAE- RESP PCR PANEL NOT DETECTED; HUMAN METAPNEUMOVIRUS NOT DETECTED; INFLUENZA A- RESP PCR PANEL NOT DETECTED; INFLUENZA B - RESP PCR PANEL NOT DETECTED; M. PNEUMONIAE- RESP PCR PANEL NOT DETECTED; PARAINFLUENZA VIRUS 1 NOT DETECTED; PARAINFLUENZA VIRUS 2 NOT DETECTED; PARAINFLUENZA VIRUS 3 NOT DETECTED; PARAINFLUENZA VIRUS 4 NOT DETECTED; RHINOVIRUS/ENTEROVIRUS NOT DETECTED; RSV- RESP PCR PANEL NOT DETECTED; SARS-CoV-2 -RESP PCR PANEL DETECTED
[2022-02-09] MEDS ORDERED: ONDANSETRON ODT 4 MG TABLET TL PRN (10:50)
[2022-02-09] MEDS ORDERED: ACETAMINOPHEN 325 MG TABLET PO PRN (10:50)
[2022-02-09] MEDS ORDERED: SODIUM CHLORIDE FLUSH 0.9% 10 ML SYRINGE IVP PRN (10:50)
[2022-02-09] MEDS ORDERED: ONDANSETRON 4 MG/2 ML VIAL IVP PRN (10:50)
--- NOTE | 2022-02-09 11:28 | HISTORY & PHYSICAL EXAMINATION ---
Chief Complaint - Chief Complaint Chief Complaint: Weakness History of Present Illness - Admitted From Admitted From:: Home - History Obtained From Records Reviewed: [facility] History obtained from: Patient, ER Physician, EMR - History of Present Illness HPI Comment/Other: This is a 76-year-old male with a past medical history significant for coronary artery disease status post stenting, aortic aneurysm status postrepair, CKD stage III, history of lymphoma, history of stroke with residual lower extremity weakness who presents today complaining of weakness. He states he began to feel ill this past Tuesday when he developed body aches, fever, chills. He states he thought he had flu so he was just resting at home. He did have some nausea and vomiting a few days ago persistent resolved. He reports no diarrhea. He has had adequate oral intake but does report drinking a little less fluid than usual. This morning he was quite weak and felt short of breath so he decided to come to the emergency department. He normally admitted with a walker at baseline since his stroke 2 years ago but he was unable to do so this morning due to the weakness. He reports no focal deficits that his weakness is just generalized. He was quite short of breath this morning but this has resolved. He also felt a little chest pain he reported felt like pressure but that has also since resolved. He has had a nonproductive cough. He currently feels impr nikhil compared to earlier this morning. He states he was scheduled to see his dentist later this week for dentures and that he has been off of the aspirin and Plavix in preparation for this. He also states he saw his oncologist last week as he was previously treated for lymphoma last year. He had a recent PET scan and there was concern for something in his colon so he is in the process of getting a colonoscopy and EGD. He states he does have a history of an aortic aneurysm and this was repaired earlier this year at the [facility]. He also had a cardiac stent during that time. He also mentions a repair of his kidneys although he is not sure exactly what happened. He does have chronic kidney dis ease but is unsure what his baseline creatinine is. He was previously seeing a bath design sales consultant prior to the aortic aneurysm repair. He states he is vaccinated for COVID-19 and has received 2 booster doses with the most recent being in November of this year. Here in the emergency department, he was noted to be febrile temperature greater than 39 C. Chest x-ray revealed no acute abnormalities and his labs were unremarkable except for mild leukocytosis and elevated creatinine. Respiratory PCR panel did come back positive for COVID-19. Given the elevated creatinine and his weakness, medicine was consulted for admission. We did discuss goals of care and he would like to be a full code. History - Past Medical History Cardiovascular: reports: Coronary artery disease Respiratory: reports: None Neuro: reports: CVA Endocrine/Autoimmune: reports: None GI: reports: None : reports: Benign prostate hypertrophy HEENT: reports: None Psych: reports: None Musculoskeletal: reports: None Derm: reports: None MRSA Hx?: No Other Past Medical History: Infrarenal aortic aneurysm, history of lymphoma. - Past Surgical History Cardiovascular: reports: Coronary stent, Vascular surgery, AAA - Family & Social History Family History: Mother: , Cancer, Father: , Renal Disease /Failure Family History Comment/Other: He reports his father had a history of diabetes and he from kidney failure. His mother had a history of colon cancer. Living arrangement: At home Living Situation: With spouse/s.o. Social History Notes: He lives at home with his . He still smokes but this is less than a pack per week. He has been smoking for over 60 years and at worst to smoking half a pack a day. He denies alcohol use. - POLST Patient has POLST: No Meds/Allgy - Home Medications Home Medications: Ambulatory Orders Medication Instructions Recorded Confirmed Alfuzosin HCl [Alfuzosin HCl ER] 10 mg PO DAILY 08/01/19 02/09/22 Aspirin Chewable [St Ernie 81 mg PO DAILY #10 tablet 08/01/19 02/09/22 Aspirin] Atorvastatin [Lipitor] 40 mg PO QPM #10 tablet 08/01/19 02/09/22 Clopidogrel [Plavix] 75 mg PO DAILY #10 tablet 08/01/19 02/09/22 Metoprolol Succinate [Toprol Xl] 100 mg PO DAILY 08/01/19 02/09/22 allopurinoL [Zyloprim] 300 mg PO DAILY 08/01/19 02/09/22 Ascorbic Acid [Vitamin C] 500 mg PO BID 02/09/22 02/09/22 Cholecalciferol (Vitamin D3) 1,000 units PO DAILY 02/09/22 02/09/22 [Vitamin D3] Entecavir 0.5 mg PO UD 02/09/22 02/09/22 - Allergies Allergies/Adverse Reactions: Allergies Allergy/AdvReac Type Severity Reaction Status Date / Time No Known Drug Allergies Allergy Verified 07/31/19 14:31 Review of Systems - Constitutional Constitutional: reports: Fatigue, Fever, Chills, Malaise, Weakness, Poor appetite - Ears, Nose & Throat Ears, Nose & Throat: denies: Nasal discharge, Nasal congestion, Sore throat - Cardiovascular Cariovascular: reports: Chest pain, Exertional dyspnea, Decr. exercise tolerance. denies: Edema - Respiratory Respiratory: reports: Cough, SOB at rest, SOB with exertion. denies: Sputum production - Gastrointestinal Gastrointestinal: reports: Nausea, Vomiting. denies: Abdominal pain, Constipation, Diarrhea - Genitourinary Genitourinary: denies: Dysuria, Frequency, Urgency, Hematuria - Musculoskeletal Musculoskeletal: reports: Muscle aches, Muscle weakness - Integumentary Integumentary: denies: Rash - Neurological Neurological: reports: General weakness. denies: Focal weakness - All Other Systems All Other Systems: reports: Reviewed and negative Prior Level of Functionality: He is independent with his ADLs. He ambulates with a walker at baseline. Exam - Vital Signs Reviewed Vital Signs: Yes Vital Signs: Vital Signs x48h Temp Pulse Resp BP Pulse Ox 02/09/22 10:26 38.7 C H 69 26 H 99 02/09/22 09:25 67 18 143/78 H 97 02/09/22 08:49 39.2 C H 81 28 H 138/101 H 94 - Physical Exam General Appearance: positive: No acute distress, Alert Eyes Bilateral: positive: Normal inspection, Conjunctivae nml ENT: positive: ENT inspection nml Neck: positive: Nml inspection Respiratory: positive: No respiratory distress. negative: Wheezes, Rales Cardiovascular: positive: Regular rate & rhythm, No murmur. negative: Tachycardia Abdomen: positive: Non-tender, No distention. negative: Tenderness Skin: positive: Warm, Dry Extremities: positive: No pedal edema Neurologic/Psychiatric: positive: Other (He has 5 out of 5 motor strength in all 4 extremities. No focal deficits.). negative: Disoriented to person, Disoriented to place, Disoriented to time Conclusion/Plan - Problem List (1) Acute kidney injury superimposed on CKD Conclusion/Plan: His creatinine is elevated at 2.6 compared to his baseline of 1.5. It is unclear if this is acute kidney injury or worsening of his chronic kidney dise ase as last labs available to me are from more than 2 years ago. We will hydrate him with IV fluids as he is likely volume depleted due to limited oral intake secondary to the viral infection. We will continue to avoid nephrotoxins. We will repeat a BMP in the morning. We will attempt to obtain outside records from the [facility] to see what his baseline renal function is. (2) COVID Conclusion/Plan: Respiratory PCR panel came back positive for COVID-19. X-ray reveals no pneumonia and he is not hypoxic but suspect is likely the cause of his weakness and fever. There is no other obvious source of infection. His procalcitonin is also less than 0.5. Blood cultures have been ordered and we will follow these up. No steroids or remdesivir given lack of hypoxia. We will continue with Tylenol as needed for fever. No antibiotics at this time. Contact precautions. (3) Generalized weakness Conclusion/Plan: This appears to be secondary to COVID-19 infection although we will need to rule out a bacterial infection although this time it is felt to be less likely. Urinalysis is unremarkable and x-ray reveals no obvious infiltrate. Blood cultures are pending. Procalcitonin is less than 0.5. We will continue with gentle IV hydration and I suspect he will improve over next 24 to 48 hours as he gets through the COVID infection. His white blood cell count is elevated but suspect this is likely reactive so we will hold off on antibiotics. (4) History of CVA (cerebrovascular accident) Conclusion/Plan: Stable. There is no focal deficits to suggest stroke at this time. We will continue home medications. (5) History of aortic aneurysm Conclusion/Plan: This was repaired earlier this year at the [facility]. Continue medical management and outpatient follow up. (6) HTN (hypertension) Conclusion/Plan: Stable. He is currently normotensive. We will continue his home metoprolol. (7) Hx of multiple pulmonary nodules Conclusion/Plan: He reportedly had a PET scan recently with his oncologist and the only concern was near his colon. He will continue outpatient follow-up with his oncologist. (8) History of lymphoma Conclusion/Plan: He was treated for lymphoma last year and this is now reportedly in remission. He will continue outpatient follow-up with his oncologist. (9) History of coronary artery disease Conclusion/Plan: He reports that he had a stent earlier this year at the [facility]. He did have chest pain earlier today which has since resolved. Suspect is likely due to the COVID-19 infection but will obtain an EKG. Initial troponin is within normal limits but we will repeat this. (10) Need for post exposure prophylaxis for hepatitis B Conclusion/Plan: He is on entecavir for potential exposure to hepatitis B. His next dose is scheduled for tomorrow as he is on treatment Tuesday/Tuesday/Tuesday. - Lab Results Lab results reviewed: Yes Fish Bones: 02/09/22 09:10 02/09/22 09:10 - Diagnostic Imaging Results Diagnostic Imaging Results: positive: Final report reviewed Core Measures - Anticipated LOS I expect patient to be DC'd or transferred within 96 hours.: Yes - Issues Hospital Issues and Management Plan: 76-year-old male presents with weakness found to be febrile and now tested positive for COVID-19. There has been no other obvious source of infection. Found to also have BARRETT on CKD. Will be placed in observation for IV hydration and to rule out bacterial infection. - DVT/VTE - Prophylaxis VTE/DVT Device ordered at admit?: Yes VTE/DVT Prophylaxis med ordered at admit?: Yes
[2022-02-09] MEDS: LACTATED RINGERS 1,000 ML IV SCH ×2 (12:17→21:58)
[2022-02-09] MEDS: SODIUM CHLORIDE FLUSH 0.9% 10 ML SYRINGE IVP SCH (18:37)
--- NOTE | 2022-02-09 19:13 | Discharge Plan ---
Discharge Plan Problem Reviewed?: Yes Disposition: Home, Self Care Condition: Stable Prescriptions: guaiFENesin/DEXTROMETHORPHAN [Robitussin Dm] 10 ml PO Q6HR PRN #1 each PRN Reason: Cough Diet: Cardiac Activity Restrictions: Activity as Tolerated Assistance Devices: Walker Health Concerns: You were admitted to the hospital because of weakness and dehydration. You are found to have COVID-19 infection and this likely explains your weakness. Your kidney numbers were a little elevated compared to your baseline and we treated you with IV fluids with improvement in your numbers. You have had improvement in your symptoms and you are now stable for discharge home. Plan of Treatment: Please continue to stay at home and wear a mask for 10 days since the onset of symptoms. You have been prescribed robitussin to take as needed for your cough. I recommend you resume your aspirin and Plavix and contact your dentist to reschedule your dental procedure. They can instruct you on when to hold the aspirin and Plavix prior to the procedure. You do have chronic kidney disease and it is important to follow-up with your primary care physician and a kidney specialist to monitor your kidney numbers. Assessment: Patient and family expressed understanding of the treatment plan. Additional Instructions or Follow Up instructions: Please follow-up with your primary care physician in 2 weeks. Please return to the emergency department if you develop shortness of breath or chest pain. No Smoking: If you smoke, Please STOP! Call for help. Follow-up with: JYOTHI CARDONA NP [Primary Care Provider] -
[2022-02-09] MEDS ORDERED: HEPARIN 5,000 UNIT/ML VIAL SUBQ SCH (21:00)
[2022-02-09] MEDS ORDERED: ATORVASTATIN 40 MG TABLET PO SCH (21:00)
[2022-02-10] MEDS: SODIUM CHLORIDE FLUSH 0.9% 10 ML SYRINGE IVP SCH (01:33)
[2022-02-10] MEDS ORDERED: guaiFENesin/DEXTROMETHORPHAN 10 ML UDC PO PRN (01:47)
[2022-02-10 04:53] LABS: BASOPHILS % (AUTO) 0.3 %; EOSINOPHILS # (AUTO) 0.1 10^3/uL (0.0-0.7); EOSINOPHILS % (AUTO) 1.7 %; HCT - HEMATOCRIT 28.8 % (42.0-52.0); HGB - HEMOGLOBIN 9.9 g/dL (14.0-18.0); LYMPHOCYTES # (AUTO) 1.6 10^3/uL (1.5-3.5); MEAN CORPUSCULAR HEMOGLOBIN 33.2 pg (27.0-31.0); MEAN CORPUSCULAR HGB CONC 34.4 g/dL (32.0-36.0); MEAN CORPUSCULAR VOLUME 96.6 fL (80.0-94.0); MEAN PLATELET VOLUME 9.7 fL (7.4-11.4); MONOCYTES # (AUTO) 0.7 10^3/uL (0.0-1.0); NEUTROPHILS # (AUTO) 4.1 10^3/uL (1.5-6.6); NEUTROPHILS % (AUTO) 62.7 %; PLT - PLATELET COUNT 125 10^3/uL (130-450); RED BLOOD COUNT 2.98 10^6/uL (4.70-6.10); RED CELL DISTRIBUTION WIDTH 14.8 % (12.0-15.0); WHITE BLOOD COUNT 6.5 x10^3/uL (4.8-10.8)
[2022-02-10 05:06] LABS: CALCIUM 8.6 mg/dL (8.5-10.3); CREATININE 1.8 mg/dL (0.6-1.2); POTASSIUM 3.6 mmol/L (3.5-5.0)
--- NOTE | 2022-02-10 07:27 | DISCHARGE SUMMARY ---
Discharge Summary Admit Date: 02/09/22 Discharge Date: 02/10/22 Discharging Provider: Srinivasa Rivera Primary Care Provider: Christina Coughlin Code Status: Attempt Resuscitation Condition at Discharge: Stable Discharge Disposition: 01 Home, Self Care - DIAGNOSES Admission Diagnoses: BARRETT on CKD COVID Generalized weakness History of CVA History of aortic aneurysm Hypertension History of multiple pulmonary nodules History of lymphoma History of coronary artery disease Need for post exposure prophylaxis of hepatitis B Discharge Diagnoses with Status of Each Condition: BARRETT on CKD - resolved. COVID - improved. Generalized weakness - resolved. History of CVA - stable. History of aortic aneurysm - stable. Hypertension - stable. History of multiple pulmonary nodules - stable. History of lymphoma - stable. History of coronary artery disease - stable. Need for post exposure prophylaxis of hepatitis B - stable. - HPI History of Present Illness: This is a 76-year-old male with a past medical history significant for coronary artery disease status post stenting, aortic aneurysm status postrepair, CKD stage III, history of lymphoma, history of stroke with residual lower extremity weakness who presents today complaining of weakness. He states he began to feel ill this past Tuesday when he developed body aches, fever, chills. He states he thought he had flu so he was just resting at home. He did have some nausea and vomiting a few days ago persistent resolved. He reports no diarrhea. He has had adequate oral intake but does report drinking a little less fluid than usual. This morning he was quite weak and felt short of breath so he decided to come to the emergency department. He normally admitted with a walker at baseline since his stroke 2 years ago but he was unable to do so this morning due to the weakness. He reports no focal deficits that his weakness is just generalized. He was quite short of breath this morning but this has resolved. He also felt a little chest pain he reported felt like pressure but that has also since resolved. He has had a nonproductive cough. He currently feels improved compared to earlier this morning. He states he was scheduled to see h is dentist later this week for dentures and that he has been off of the aspirin and Plavix in preparation for this. He also states he saw his oncologist last week as he was previously treated for lymphoma last year. He had a recent PET scan and there was concern for something in his colon so he is in the process of getting a colonoscopy and EGD. He states he does have a history of an aortic aneurysm and this was repaired earlier this year at the [facility]. He also had a cardiac stent during that time. He also mentions a repair of his kidneys although he is not sure exactly what happened. He does have chronic kidney disease but is unsure what his baseline creatinine is. He was previously seeing a agriculture instructor prior to the aortic aneurysm repair. He states he is vaccinated for COVID-19 and has received 2 booster doses with the most recent being in November of this year. Here in the emergency department, he was noted to be febrile temperature greater than 39 C. Chest x-ray revealed no acute abnormalities and his labs were unremarkable except for mild leukocytosis and elevated creatinine. Respiratory PCR panel did come back positive for COVID-19. Given the elevated creatinine and his weakness, medicine was consulted for admission. We did discuss goals of care and he would like to be a full code. - HOSPITAL COURSE Hospital Course: He was admitted to the floor under observation for generalized weakness and BARRETT on CKD. His weakness was felt related to COVID-19 infection as he did test positive for this. He was initially febrile on admission but has been afebrile now for more than 24 hours. He was treated with IV fluids and his creatinine improved back to his baseline of around 1.6. He has had improvement in his strength and has been able to ambulate with a walker. He did have chest discomfort which was related to a cough. We did do an EKG and serial troponins which did not suggest ischemia. He was prescribed Robitussin for his cough. He was instructed to quarantine for at least 10 days. I also recommended that he resume his aspirin and Plavix as these were being held for dental procedure but this will not be delayed. He was instructed to contact his dentist to reschedule this in the future - ALLERGIES Allergies/Adverse Reactions: Allergies Allergy/AdvReac Type Severity Reaction Status Date / Time No Known Drug Allergies Allergy Verified 07/31/19 14:31 - MEDICATIONS Home Medications: Ambulatory Orders Medication Instructions Recorded Confirmed Alfuzosin HCl [Alfuzosin HCl ER] 10 mg PO DAILY 08/01/19 02/09/22 Aspirin Chewable [St Ernie 81 mg PO DAILY #10 tablet 08/01/19 02/09/22 Aspirin] Atorvastatin [Lipitor] 40 mg PO QPM #10 tablet 08/01/19 02/09/22 Clopidogrel [Plavix] 75 mg PO DAILY #10 tablet 08/01/19 02/09/22 Metoprolol Succinate [Toprol Xl] 100 mg PO DAILY 08/01/19 02/09/22 allopurinoL [Zyloprim] 300 mg PO DAILY 08/01/19 02/09/22 Ascorbic Acid [Vitamin C] 500 mg PO BID 02/09/22 02/09/22 Cholecalciferol (Vitamin D3) 1,000 units PO DAILY 02/09/22 02/09/22 [Vitamin D3] Entecavir 0.5 mg PO UD 02/09/22 02/09/22 guaiFENesin/DEXTROMETHORPHAN 10 ml PO Q6HR PRN #1 each 02/10/22 [Robitussin Dm] - PHYSICAL EXAM AT DISCHARGE General Appearance: positive: No acute distress, Alert Eyes Bilateral: positive: Normal inspection ENT: positive: ENT inspection nml, No signs of dehydration. negative: Dry mucous membranes Neck: positive: Nml inspection Respiratory: positive: No respiratory distress. negative: Wheezes, Rales Cardiovascular: positive: Regular rate & rhythm. negative: Tachycardia Abdomen: positive: Non-tender, No distention. negative: Tenderness Skin: positive: Warm, Dry Extremities: positive: No pedal edema Neurologic/Psychiatric: negative: Disoriented to person, Disoriented to place Physical Exam Other/Comments: Vital Signs - 8 hr 02/10/22 02/10/22 02/10/22 01:00 04:17 07:20 Temperature 37.2 C 37.2 C 37.0 C Heart Rate [ 72 70 67 Brachial] Respiratory 20 20 18 Rate Blood Pressure 137/60 H 138/76 H 120/66 [Left Brachial artery] O2 Saturation 98 94 97 - LABS Result Diagrams: 02/10/22 04:26 02/10/22 04:26 - DIAGNOSTIC IMAGING Diagnostic Imaging Results: Final report reviewed - FOLLOW UP Follow Up: He was instructed to follow-up with his primary care physician in 2 weeks. - TIME SPENT Time Spent in Discharge (Minutes): 31
[2022-02-10] MEDS ORDERED: TAMSULOSIN 0.4 MG CAPSULE PO SCH (09:00)
[2022-02-10] MEDS ORDERED: ASPIRIN CHEW 81 MG TABLET PO SCH (09:00)
[2022-02-10] MEDS ORDERED: allopurinoL 100 MG TABLET PO SCH (09:00)
[2022-02-10] MEDS ORDERED: METOPROLOL SUCCINATE 50 MG TABLET PO SCH (09:00)
[2022-02-10] MEDS ORDERED: CLOPIDOGREL 75 MG TABLET PO SCH (09:00)
[2022-02-10 10:51] VITALS: BP 130/62
== END 2022-02-10 11:49 | disposition home or self-care (01) ==
LOC: EDUNIT# → ED 08:43 → MS2 10:50
PROVIDERS: ADMIT Emergency Medicine; ATTEND Internal Medicine
DX: U07.1 COVID-19 (principal); N17.9 Acute kidney failure, unspecified; N18.30 Chronic kidney disease, stage 3 unspecified; I12.9 Hypertensive chronic kidney disease with stage 1 through stage 4 chronic kidney disease, or unspecified chronic kidney disease; I25.10 Atherosclerotic heart disease of native coronary artery without angina pectoris; D72.829 Elevated white blood cell count, unspecified; N40.0 Benign prostatic hyperplasia without lower urinary tract symptoms; F17.200 Nicotine dependence, unspecified, uncomplicated; R91.8 Other nonspecific abnormal finding of lung field; I69.349 Monoplegia of lower limb following cerebral infarction affecting unspecified side; E86.0 Dehydration; Z20.5 Contact with and (suspected) exposure to viral hepatitis; Z79.02 Long term (current) use of antithrombotics/antiplatelets; Z79.82 Long term (current) use of aspirin; Z79.899 Other long term (current) drug therapy; Z80.1 Family history of malignant neoplasm of trachea, bronchus and lung; Z83.3 Family history of diabetes mellitus; Z84.1 Family history of disorders of kidney and ureter; Z85.72 Personal history of non-Hodgkin lymphomas; Z86.79 Personal history of other diseases of the circulatory system; Z95.5 Presence of coronary angioplasty implant and graft
CPT/HCPCS: 36415; 71045; 80048; 80053; 81001; 83880; 84145; 84484; 85025; 85610; 87040; 87633; 93005; 96361; 96365; 96368; 96372; 99284; 99285; A9270; G0378; J7120; 81003; 87086

== ENCOUNTER 2023-06-23 07:16 | Day surgery (SDC) | payer OTHER ==
[~2023-06-23 07:16] MED LIST: KETOROLAC 0.45% OPHTH DROPS ONE; PHENYLEPHRINE 2.5% OPHTH 2 ML DROPS ONE
[2023-06-23] MEDS ORDERED: EPINEPHrine 1 MG/ML AMP IO ONE ×2 (07:17→08:31)
[2023-06-23] MEDS ORDERED: TRIAMCIN/MOXIFLOX OPHTHALMIC 0.6 ML VIAL IO ONE ×2 (07:17→08:32)
[2023-06-23] MEDS ORDERED: LACTATED RINGERS 1,000 ML IV ONE ×2 (07:35→09:02)
[2023-06-23] MEDS: PROPARACAINE 0.5% OPHTH DROPS 15 ML ONE ×2 (07:45→07:47)
[2023-06-23] MEDS ORDERED: CYCLOPENTOLATE 1% OPHTH DROPS 2 ML RIGHTEYE ONE (07:48)
[2023-06-23] MEDS ORDERED: MIDAZOLAM 2 MG/2 ML VIAL ONE (08:10)
--- NOTE | 2023-06-23 08:14 | ANESTHESIA ---
Pre-Anesthesia VS, & Labs - Diagnosis senile combined cataract - Procedure cataract extraction with IOL Vital Signs: Temp Pulse Resp BP Pulse Ox O2 Flow Rate 36.1 C L 69 16 171/81 H 100 06/23/23 07:42 06/23/23 07:42 06/23/23 07:42 06/23/23 07:42 06/23/23 07:42 Height: 5 ft 4 in Weight (kg): 63.6 kg Body Mass Index: 24.0 BMI Classification: Normal - NPO >8 hours Home Medications and Allergies Home Medications: Ambulatory Orders Albuterol Sulf [Ventolin Hfa Inhaler] 2 puffs INH PRN PRN 06/22/23 Atorvastatin [Lipitor] 10 mg ORAL HS 06/22/23 Megestrol [Megace] 20 ml ORAL DAILY 06/22/23 Tiotropium [place] [Spiriva Handihaler] 1 puffs INH BID 06/22/23 Cholecalciferol (Vitamin D3) [Vitamin D3] 50 mcg PO DAILY 02/09/22 Acetaminophen [Acetaminophen Extra Strength] 500 mg PO QID 02/20/22 Aspirin EC [Ecotrin] 81 mg PO DAILY 02/20/22 Carboxymethyl/Gly/Poly80/Pf [Refresh Digital Pf Eye Drops] 1 - 2 drops EACHEYE QID PRN 02/20/22 Albuterol Sulf [Ventolin Hfa Inhaler] 2 puffs INH PRN PRN 06/22/23 Atorvastatin [Lipitor] 10 mg ORAL HS 06/22/23 Megestrol [Megace] 20 ml ORAL DAILY 06/22/23 Tiotropium [place] [Spiriva Handihaler] 1 puffs INH BID 06/22/23 Allergies/Adverse Reactions: Allergies Allergy/AdvReac Type Severity Reaction Status Date / Time No Known Drug Allergies Allergy Verified 06/22/23 13:42 Anes History & Medical History - Medical History Cardiovascular: reports: Hypertension, High cholesterol, Coronary artery disease Pulmonary: reports: Other Gastrointestinal: reports: Other Urinary: reports: Benign prostate hypertrophy, Renal insuffiency Neuro: reports: CVA Musculoskeletal: reports: Fatigue, Chronic back pain, Other Endocrine/Autoimmune: reports: Other Blood Disorders: reports: None Skin: reports: None Smoking Status: Former smoker - Surgical History Cardiothoracic: reports: Coronary stent, Vascular surgery, AAA Exam General: Alert, Oriented x3 Dental: WNL, Dentures full Upper, Dentures full Lower Neck Mobility: Normal Mallampati classification: II Respiratory: Lungs clear Cardiovascular: Regular rate, Normal S1, Normal S2 Plan Anesthesia Type: MAC Consent for Procedure(s) Verified and Reviewed: Yes Code Status: Attempt Resuscitation ASA classification: 3-Severe systemic disease Is this case an emergency?: No
[2023-06-23] MEDS ORDERED: TIMOLOL 0.5% OPHTH DROPS ONE (08:16)
[2023-06-23] MEDS ORDERED: BSS/LIDOCAINE/EPINEPHRINE 1 ML VIAL ONE (08:16)
[2023-06-23] MEDS ORDERED: BRIMONIDINE 0.2% OPHTH DROPS 5 ML ONE (08:16)
[2023-06-23] MEDS ORDERED: BRIMONIDINE 0.2% OPHTH DROPS 5 ML OPTH ONE (08:31)
[2023-06-23] MEDS ORDERED: TIMOLOL 0.5% OPHTH DROPS OPTH ONE (08:31)
[2023-06-23] MEDS ORDERED: BSS/LIDOCAINE/EPINEPHRINE 1 ML SYRINGE IO ONE (08:32)
[2023-06-23] MEDS ORDERED: PROPARACAINE 0.5% OPHTH DROPS 15 ML EACHEYE ONE (08:33)
[2023-06-23] MEDS ORDERED: VANCOMYCIN OPHTH (TOPICAL) 10 MG/ML SYRINGE TOP ONE (08:33)
--- NOTE | 2023-06-23 09:11 | OPERATIVE REPORT ---
Operative Report - Other Other Information/Narrative: Date of Surgery: 06/23/23 Preop Dx: Visually significant cataract right eye. This was the first cataract surgery. Postop Dx: Same Procedure: Phacoemulsification with posterior chamber intraocular lens implant right eye Surgeon: Dr. Joe Granado Anesthesia: Monitored anesthesia care Complications: None Operative Indications: This is a 77-year-old M with progressive vision loss in the right eye due to 2-3+ nuclear sclerotic and 2+ cortical cataract. Best corrected visual acuity was 20/70 with glare to 20/800 vision in the right eye. Indications for surgery were: - Overall decrease in vision - Difficulty seeing words on a computer screen - Difficulty reading - Difficulty seeing words, closed captions, or game scores on TV - Difficulty seeing street signs - Difficulty driving in low light or at night - Difficulty driving at night because of headlights from other vehicles - Difficulty with glare or bright lights in any situation The patient was consented at length concerning the risks and benefits of cataract surgery after which the patient expressed a desire to proceed with surgery. Operative Procedure: The patient was taken into OR#3 and placed under monitored anesthesia care. A surgical time-out was conducted confirming correct patient, correct procedure, and correct surgical site. The patient was given topical anesthesia and then prepped and draped in the usual sterile fashion. It was noted before starting surgery that his cornea presented with a sort of cracked glass appearance but in a regular square-chang box pattern - a grid of 6x6. 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 I elected to continue with the cataract surgery. The eye was entered at the 6 and 3 oclock positions. Intracameral Shugarcaine was injected into the anterior chamber followed by a dispersive viscoelastic. A continuous-tear curvilinear capsulorhexis was performed. The nucleus was hydrodissected and phacoemulsified. The cortex was evacuated using automated infusion and aspiration. A cohesive viscoelastic was injected into the capsular bag and a 23.5 diopter intraocular lens was inserted into the bag. Infusion and aspiration were used to evacuate the viscoelastic materials from the eye. The wounds were hydrated and the eye inflated to physiologic pressure using balanced salt solution. Approximately 0.25ml of a mixture of triamcinolone and moxifloxacin was injected trans-sclerally into the vitreous in the inferotemporal quadrant using a 30 gauge cannula. An additional 0.25ml of a mixture of triamcinolone and moxifloxacin was injected subconjunctivally in the superior quadrant for infection and inflammation prophylaxis. Wound integrity was checked with Weck-Luli sponges. The patient was taken from the operating room in good condition and given post-op instructions.
[2023-06-23 09:24] VITALS: BP 177/86; O2SAT 100
--- NOTE | 2023-06-23 10:45 | ANESTHESIA POST OP EVALUATION ---
Anesthesia Post Eval - Post Anesthesia Eval Vitals: Last Vital Signs Temp 36.0 C L 06/23/23 09:17 Pulse 81 06/23/23 09:22 Resp 16 06/23/23 09:22 BP 177/86 H 06/23/23 09:22 Pulse Ox 100 06/23/23 09:22 O2 Flow Rate CV Function Including HR & BP: Stable Pain Control: Satisfactory Nausea & Vomiting: Negative Mental Status: Baseline Respiratory Status: Airway Patent Hydration Status: Satisfactory Anesthesia Complications: None
== END 2023-06-23 07:17 | disposition home or self-care (01) ==
LOC: SDS 07:16
PROVIDERS: ATTEND Ophthalmology
DX: H25.811 Combined forms of age-related cataract, right eye (principal); J44.9 Chronic obstructive pulmonary disease, unspecified; N40.0 Benign prostatic hyperplasia without lower urinary tract symptoms; I25.10 Atherosclerotic heart disease of native coronary artery without angina pectoris; Z87.891 Personal history of nicotine dependence; I10 Essential (primary) hypertension
CPT/HCPCS: 66984; A9270; J3490; J7120

== ENCOUNTER 2023-08-18 07:06 | Day surgery (SDC) | payer OTHER ==
[2023-08-18] MEDS: KETOROLAC 0.45% OPHTH DROPS ONE (07:30)
[2023-08-18] MEDS: PROPARACAINE 0.5% OPHTH DROPS 15 ML ONE (07:30)
[2023-08-18] MEDS: LACTATED RINGERS 1,000 ML IV ONE ×2 (07:30→09:17)
[2023-08-18] MEDS: PHENYLEPHRINE 2.5% OPHTH 2 ML DROPS ONE (07:30)
[2023-08-18] MEDS: ALBUTEROL 6.7 GM INHALER INH ONE (08:09)
--- NOTE | 2023-08-18 08:12 | ANESTHESIA ---
Pre-Anesthesia VS, & Labs - Diagnosis L cataract - Procedure L PhacoIOL Vital Signs: Temp Pulse Resp BP Pulse Ox O2 Flow Rate 36.3 C L 59 L 24 122/92 H 100 0 08/18/23 07:34 08/18/23 07:34 08/18/23 07:34 08/18/23 07:34 08/18/23 07:34 08/18/23 07:34 Height: 5 ft 4 in Weight (kg): 66 kg Body Mass Index: 25.0 BMI Classification: Overweight - NPO >8 hours Home Medications and Allergies Cholecalciferol (Vitamin D3) [Vitamin D3] 50 mcg PO DAILY 02/09/22 Acetaminophen [Acetaminophen Extra Strength] 500 mg PO QID 02/20/22 Aspirin EC [Ecotrin] 81 mg PO DAILY 02/20/22 Carboxymethyl/Gly/Poly80/Pf [Refresh Digital Pf Eye Drops] 1 - 2 drops EACHEYE QID PRN 02/20/22 Albuterol Sulf [Ventolin Hfa Inhaler] 2 puffs INH PRN PRN 06/22/23 Atorvastatin [Lipitor] 10 mg ORAL HS 06/22/23 Megestrol [Megace] 20 ml ORAL DAILY 06/22/23 Tiotropium [place] [Spiriva Handihaler] 1 puffs INH BID 06/22/23 Allergies/Adverse Reactions: Allergies Allergy/AdvReac Type Severity Reaction Status Date / Time No Known Drug Allergies Allergy Verified 08/18/23 07:52 Anes History & Medical History - Anesthetic History Anesthesia Complications: reports: No previous complications Family history of Anesthesia Complications: Denies Family history of Malignant Hyperthermia: Denies - Medical History Cardiovascular: reports: Hypertension, High cholesterol, Coronary artery disease Pulmonary: reports: COPD, Other Gastrointestinal: reports: Hepatitis, Other Urinary: reports: Benign prostate hypertrophy, Renal insuffiency Neuro: reports: CVA Musculoskeletal: reports: Gout, Fatigue, Chronic back pain, Other Endocrine/Autoimmune: reports: Other Blood Disorders: reports: None Skin: reports: None Smoking Status: Former smoker - Surgical History Cardiothoracic: reports: Coronary stent, Vascular surgery, AAA Exam General: Alert, Oriented x3, Cooperative Dental: WNL Mouth Openin Fingerbreadth Neck Mobility: Normal Mallampati classification: II Thyromental Distance: less than 4 cm Respiratory: Wheezing Cardiovascular: Regular rate Plan Anesthesia Type: MAC Consent for Procedure(s) Verified and Reviewed: Yes Code Status: Attempt Resuscitation ASA classification: 3-Severe systemic disease Is this case an emergency?: No
[2023-08-18] MEDS ORDERED: MIDAZOLAM 2 MG/2 ML VIAL ONE (08:35)
[2023-08-18] MEDS ORDERED: EPINEPHrine 1 MG/ML AMP ONE (08:44)
[2023-08-18] MEDS ORDERED: TIMOLOL 0.5% OPHTH DROPS ONE (08:44)
[2023-08-18] MEDS ORDERED: BRIMONIDINE 0.2% OPHTH DROPS 5 ML ONE (08:44)
[2023-08-18] MEDS ORDERED: TRIAMCIN/MOXIFLOX OPHTHALMIC 0.6 ML VIAL IO ONE (08:44)
[2023-08-18] MEDS ORDERED: BSS/LIDOCAINE/EPINEPHRINE 1 ML VIAL ONE (08:44)
[2023-08-18] MEDS: EPINEPHrine 1 MG/ML AMP IR ONE (08:47)
[2023-08-18] MEDS: TIMOLOL 0.5% OPHTH DROPS OPTH ONE (08:47)
[2023-08-18] MEDS: BRIMONIDINE 0.2% OPHTH DROPS 5 ML OPTH ONE (08:47)
[2023-08-18] MEDS: VANCOMYCIN OPHTH (TOPICAL) 10 MG/ML SYRINGE TOP ONE (08:48)
[2023-08-18] MEDS: PROPARACAINE 0.5% OPHTH DROPS 15 ML EACHEYE ONE (08:48)
[2023-08-18] MEDS: BSS/LIDOCAINE/EPINEPHRINE 1 ML SYRINGE IO ONE (08:48)
[2023-08-18] MEDS: TRIAMCIN/MOXIFLOX OPHTHALMIC 0.6 ML VIAL IO ONE (08:48)
--- NOTE | 2023-08-18 09:25 | OPERATIVE REPORT ---
Operative Report - Other Other Information/Narrative: Date of Surgery: 08/18/23 Preop Dx: Visually significant cataract left eye. Cataract surgery was performed in the right eye on . Postop Dx: Same Procedure: Phacoemulsification with posterior chamber intraocular lens implant left eye Surgeon: Dr. Joe Granado Anesthesia: Monitored anesthesia care Complications: None Operative Indications: This is a 77-year-old M with progressive vision loss in the left eye due to 2+ nuclear sclerotic and 2-3+ cortical cataract. Best corrected visual acuity was 20/50 with glare to 20/630 vision in the left eye. Indications for surgery were: - Overall decrease in vision - Difficulty seeing words on a computer screen - Difficulty reading - Difficulty seeing words, closed captions, or game scores on TV - Difficulty seeing street signs - Difficulty driving in low light or at night - Difficulty driving at night because of headlights from other vehicles - Difficulty with glare or bright lights in any situation The patient was consented at length concerning the risks and benefits of cataract surgery after which the patient expressed a desire to proceed with surgery. Operative Procedure: The patient was taken into OR#3 and placed under monitored anesthesia care. A surgical time-out was conducted confirming correct patient, correct procedure, and correct surgical site. The patient was given topical anesthesia and then prepped and draped in the usual sterile fashion. The eye was entered at the 6 and 3 oclock positions. Intracameral Shugarcaine was injected into the anterior chamber followed by a dispersive viscoelastic. A continuous-tear curvilinear capsulorhexis was performed. The nucleus was hydrodissected and phacoemulsified. The cortex was evacuated using automated infusion and aspiration. A cohesive viscoelastic was injected into the capsular bag and a 23.5 diopter intraocular lens was inserted into the bag. Infusion and aspiration were used to evacuate the viscoelastic materials from the eye. The wounds were hydrated and the eye inflated to physiologic pressure using balanced salt solution. Approximately 0.25ml of a mixture of triamcinolone and moxifloxacin was injected trans-sclerally into the vitreous in the inferotemporal quadrant using a 30 gauge cannula. An additional 0.25ml of a mixture of triamcinolone and moxifloxacin was injected subconjunctivally in the superior quadrant for infection and inflammation prophylaxis. Wound integrity was checked with Weck-Luli sponges. The patient was taken from the operating room in good condition and given post-op instructions.
[2023-08-18 09:41] VITALS: O2SAT 99
[2023-08-18 09:51] VITALS: BP 173/68
--- NOTE | 2023-08-18 15:08 | ANESTHESIA POST OP EVALUATION ---
Anesthesia Post Eval - Post Anesthesia Eval Vitals: Last Vital Signs Temp 36.1 C L 08/18/23 09:28 Pulse 70 08/18/23 09:28 Resp 18 08/18/23 09:28 BP 173/68 H 08/18/23 09:41 Pulse Ox 99 08/18/23 09:28 O2 Flow Rate 0 08/18/23 07:34 CV Function Including HR & BP: Stable Pain Control: Satisfactory Nausea & Vomiting: Negative Mental Status: Baseline Respiratory Status: Airway Patent Hydration Status: Satisfactory Anesthesia Complications: None
== END 2023-08-18 07:07 | disposition home or self-care (01) ==
LOC: SDS 07:06
PROVIDERS: ATTEND Ophthalmology
DX: H25.812 Combined forms of age-related cataract, left eye (principal); J44.9 Chronic obstructive pulmonary disease, unspecified; I25.10 Atherosclerotic heart disease of native coronary artery without angina pectoris; N40.0 Benign prostatic hyperplasia without lower urinary tract symptoms; Z87.891 Personal history of nicotine dependence; Z98.41 Cataract extraction status, right eye; Z79.899 Other long term (current) drug therapy
CPT/HCPCS: 66984; A9270; J3490; J7120; J7613

== ENCOUNTER 2024-03-10 23:39 | Outpatient (CLI) | payer OTHER | END 2024-03-10 23:40 | disposition EMS.NT | LOC: EMS 23:39 | DX: Z03.89 Encounter for observation for other suspected diseases and conditions ruled out (principal) ==

== ENCOUNTER 2024-04-11 14:04 | Observation (INO) ==
[2024-04-11] MEDS: SODIUM CHLORIDE 0.9% 1,000 ML IV STA (15:13)
--- NOTE | 2024-04-11 15:15 | ED Physician Documentation ---
History of Present Illness Stated complaint Stated Complaint: BACK PAIN/SOA Chief complaint Chief Complaint: General History obtained from History obtained from: Patient and Family () History of Present Illness Timing: Prior to arrival and Today Additonal information Additional information: 78-year-old Erich valentin was on the commode today when he was straining for stool he developed some pain in his lower back and shortness of breath as well as diaphoresis. He asked his to call the ambulance. En route he was treated as above. The patient has been into [facility] at the end of February for a TIA after a fall. He had a full evaluation he does have carotid disease and he is not a good candidate for the procedure. He does have a lace ration to the top of his scalp and he needs to have the sutures removed. Sutures were placed March 10. Review of Systems Constitutional Reports: Fatigue, Chills and Night sweats Ears, nose, mouth, and throat Reports: Vertigo Cardiovascular Reports: lightheadedness and shortness of breath with exertion; Denies: chest pain, edema or swelling of feet/ankles Respiratory Reports: Shortness of breath; Denies: Cough or Sputum production Gastrointestinal Denies: Abdominal pain Musculoskeletal Reports: Back pain Integumentary/Breast Denies: Rash or Itching Neurological Reports: General weakness, Dizziness and Vertigo; Denies: Headache or Focal weakness Endocrine Reports: Fatigue Exam Exam Older male in no distress is hard of hearing but interactive there is minimal speech delay and a 2-second delay in execution of motor commands. Constitutional normal general appearance and no apparent distress HENMT normocephalic, head/scalp traumatic other (There is a healing laceration to the vertex of the scalp there is eschar present. This is the site of the prior laceration from March 10) and nasal mucous membranes normal (Dry mucous membranes) Eyes PERRL Neck/C-Spine visual inspection normal and trachea midline Chest inspection of chest normal Respiratory breath sounds equal bilaterally, normal respiratory effort, clear to auscultation bilaterally, no wheezes and no rales Cardiovascular normal heart rate noted, regular rhythm noted and no murmur Gastrointestinal abdomen normal to inspection, abdomen soft to palpation and nontender to palpation Genitourinary no CVA tenderness Back/Pelvis spine normal to inspection Extremities normal to inspection No peripheral edema [employer] sales executive II-XII intact, no movement abnormality noted, no focal motor deficit noted and no sensory deficits noted Psychiatry mental status grossly normal Skin skin color normal and no rash Results Vitals Vitals: Vital Signs - 24 hr 04/11/24 14:06 Temperature 36.1 C L Temperature Source Temporal Artery Scan Pulse Rate 78 Respiratory Rate 20 Blood Pressure 129/66 O2 Saturation 95 O2 Source Room air Pain Intensity 0 Oxygen O2 Source Room air Labs Labs: Laboratory Tests 04/11/24 04/11/24 04/11/24 15:33 15:33 15:33 WBC 13.2 H RBC 1.60 L Hgb 5.5 L* Hct 18.2 L* MCV 113.8 H MCH 34.4 H MCHC 30.2 L RDW 15.2 H Plt Count 126 L MPV 9.5 Neut # (Auto) 10.7 H Lymph # (Auto) 1.2 L [place] # (Auto) 1.1 H Eos # (Auto) 0.0 Baso # (Auto) 0.0 Absolute Nucleated RBC 0.26 Nucleated RBC % 2.0 Platelet Estimate DECREASED (<130,000) Platelet Morphology NORMAL APPEARANCE RBC Morph Micro Appear 2+ ANISOCYTOSIS 1+ MACROCYTOSIS 1+ MICROCYTOSIS Sodium Potassium Chloride Carbon Dioxide Anion Gap BUN Creatinine Estimated GFR (MDRD) Glucose Calcium Total Bilirubin AST ALT Alkaline Phosphatase Total Protein Albumin Globulin Albumin/Globulin Ratio Lipase Urine Color Urine Clarity Urine pH Ur Specific [place] Urine Protein Urine Glucose (UA) Urine Ketones Urine Occult Blood Urine Nitrite Urine Bilirubin Urine Urobilinogen Ur Leukocyte Esterase Urine RBC Urine WBC Ur Squamous Epith Cells Urine Bacteria Ur Microscopic Review Urine Culture Comments Blood Type Blood Type Recheck Antibody Screen Crossmatch IS Only 04/11/24 04/11/24 04/11/24 15:33 15:33 16:37 WBC RBC Hgb Hct MCV MCH MCHC RDW Plt Count MPV Neut # (Auto) Lymph # (Auto) [place] # (Auto) Eos # (Auto) Baso # (Auto) Absolute Nucleated RBC Nucleated RBC % Platelet Estimate Platelet Morphology RBC Morph Micro Appear 1+ HYPOCHROMASIA 1+ OVALOCYTES Sodium 142 Potassium 4.3 Chloride 110 Carbon Dioxide 22 Anion Gap 10.0 BUN 68 H Creatinine 4.3 H Estimated GFR (MDRD) 13 L Glucose 124 H Calcium 8.9 Total Bilirubin 0.3 AST 13 ALT 7 L Alkaline Phosphatase 35 L Total Protein 6.8 Albumin 3.9 Globulin 2.9 Albumin/Globulin Ratio 1.3 Lipase 85 H Urine Color Urine Clarity Urine pH Ur Specific [place] Urine Protein Urine Glucose (UA) Urine Ketones Urine Occult Blood Urine Nitrite Urine Bilirubin Urine Urobilinogen Ur Leukocyte Esterase Urine RBC Urine WBC Ur Squamous Epith Cells Urine Bacteria Ur Microscopic Review Urine Culture Comments Blood Type A POSITIVE Blood Type Recheck A POSITIVE Antibody Screen NEGATIVE Crossmatch IS Only See Detail 04/11/24 18:15 WBC RBC Hgb Hct MCV MCH MCHC RDW Plt Count MPV Neut # (Auto) Lymph # (Auto) [place] # (Auto) Eos # (Auto) Baso # (Auto) Absolute Nucleated RBC Nucleated RBC % Platelet Estimate Platelet Morphology RBC Morph Micro Appear Sodium Potassium Chloride Carbon Dioxide Anion Gap BUN Creatinine Estimated GFR (MDRD) Glucose Calcium Total Bilirubin AST ALT Alkaline Phosphatase Total Protein Albumin Globulin Albumin/Globulin Ratio Lipase Urine Color YELLOW Urine Clarity CLEAR Urine pH 6.0 Ur Specific [place] 1.025 Urine Protein 30 H Urine Glucose (UA) NEGATIVE Urine Ketones NEGATIVE Urine Occult Blood SMALL H Urine Nitrite NEGATIVE Urine Bilirubin NEGATIVE Urine Urobilinogen 0.2 (NORMAL) Ur Leukocyte Esterase NEGATIVE Urine RBC 6-10 H Urine WBC 0-3 Ur Squamous Epith Cells RARE Squamous Urine Bacteria None Seen Ur Microscopic Review INDICATED Urine Culture Comments NOT INDICATED Blood Type Blood Type Recheck Antibody Screen Crossmatch IS Only Procedures IVC sono (time) 1510: Bedside IVC sono: IVC measures (cm) (0.78), IVC collapsed c insp (cm) and Dehydration (est 2 liter deficit) PD Medical Decision Making ED course Complexity details: reviewed old records, reviewed results, re-evaluated patient, considered differential, d/w patient and d/w family Reviewed Lab Results: We reviewed a complete blood count showing an elevated white blood cell count of 13.2 and a critically low hemoglobin of 5.5 and a critically low hematocrit of 18.2 these values were lower than his most recent values by a significant margin. The patient has had prior transfusion will require transfusion today. The electrolytes showed normal electrolytes BUN was elevated at 68 creatinine at 4.3. I interpreted these laboratory results to indicate the patient will require a transfusion and that the likely reason for his significant anemia is progressive renal failure. He has refused to take his medication because of side effects he has read in the instructions. ED course: Dung James presented to the emergency department with a dramatic episode while he was on the commode with SOA and back pain. He was found to be volume depleted and he is found to have critically low hemoglobin and hematocrit. He has a prior history of transfusion and poor renal function and he has been prescribed depopoetin alpha and he has not taken this because of concerns for side effect. He does take iron. Today he is given IV saline and we are preparing a transfusion. At shift change care is turned over to Dr. Rodriguez with transfusion ongoing and anticipating repeat evaluation and admission for a second unit which will require close observation for fluid status. [facility] Social History Social History Smoking Status: Former smoker If you are a former smoker, when did you quit? (Date/Year): 2021 Number of Years Smoked: 61 How many cigarettes a day do you smoke? (20 cigarettes=1 Pk): 1 Do you dip or chew tobacco?: No Patient requests smoking cessation consult: No Initiate information on smoking cessation: No Living arrangement: At home Living Condition: With spouse/s.o. Relationship: Home Mobility Equipment: Wheeled walker Do you feel safe in your home environment?: Yes Suffered physical, verbal, emotional, or financial abuse?: No History of Abuse: No POLST Patient has POLST: No POLST Status: Full Code Discharge Plan Discharge Prescriptions: No Action cholecalciferol (vitamin D3) 25 MCG capsule 50 mcg PO DAILY aspirin 81 MG tablet,delayed release (DR/EC) 81 mg PO DAILY acetaminophen [Acetaminophen Extra Strength] 500 MG tablet 500 mg PO QID PRN (Reason: fever or pain) albuterol sulfate [Ventolin HFA] 200 PUFFS/18 GM HFA aerosol inhaler 2 puff inhalation QID tiotropium bromide [Spiriva with HandiHaler] 18 MCG capsule, w/inhalation device 1 puff inhalation BID megestrol 400 MG/10 ML suspension 20 ml PO BID atorvastatin 10 MG tablet 80 mg PO HS metoprolol tartrate 50 mg tablet 50 mg PO BID gabapentin 100 mg capsule 100 mg PO TID ferrous gluconate 324 mg (38 mg iron) tablet 324 mg PO BID sodium bicarbonate 325 mg tablet 975 mg PO DAILY darbepoetin shelley-albumin 25 mcg/mL solution 25 mcg .Route UD Patient Comments: Pt receives every 2 weeks Stand Alone Forms: PCP List
--- NOTE | 2024-04-11 15:42 | XRAY Report ---
PROCEDURE: XR Chest 1V INDICATIONS: soa TECHNIQUE: One view of the chest was acquired. COMPARISON: CT chest with contrast 02/27/2022, CXR 02/27/2022. FINDINGS: Surgical changes and devices: Descending thoracic aorta stent. Lungs and pleura: No pleural effusions or pneumothorax. Minimal hazy opacity in the left lower lobe. Mediastinum: Mediastinal contours appear normal. Heart size is normal. Bones and chest wall: No suspicious bony lesions. Overlying soft tissues appear unremarkable. IMPRESSION: Minimal hazy opacity in the left lower lobe. This could be due to atelectasis. Less likely edema. Reviewed by: Prasanna Collins MD on 04/11/2024 3:40 PM PDT Approved by: Prasanna Collins MD on 04/11/2024 3:40 PM PDT Station ID: [id number]
[2024-04-11 15:49] LABS: BASOPHILS % (AUTO) 0.2 %; EOSINOPHILS % (AUTO) 0.3 %; LYMPHOCYTES # (AUTO) 1.2 10^3/uL (1.5-3.5); LYMPHOCYTES % (AUTO) 9.2 %; MEAN CORPUSCULAR HEMOGLOBIN 34.4 pg (27.0-31.0); MEAN CORPUSCULAR HGB CONC 30.2 g/dL (32.0-36.0); MEAN CORPUSCULAR VOLUME 113.8 fL (80.0-94.0); MEAN PLATELET VOLUME 9.5 fL (7.4-11.4); MONOCYTES # (AUTO) 1.1 10^3/uL (0.0-1.0); MONOCYTES % (AUTO) 8.2 %; NEUTROPHILS # (AUTO) 10.7 10^3/uL (1.5-6.6); NRBC ABSOLUTE COUNT (AUTO) 0.26 x10^3/uL; PLT - PLATELET COUNT 126 10^3/uL (130-450); RED CELL DISTRIBUTION WIDTH 15.2 % (12.0-15.0); WHITE BLOOD COUNT 13.2 x10^3/uL (4.8-10.8)
[2024-04-11 15:53] LABS: HCT - HEMATOCRIT 18.2 % (42.0-52.0); HGB - HEMOGLOBIN 5.5 g/dL (14.0-18.0)
[2024-04-11 16:00] LABS: ALBUMIN 3.9 g/dL (3.2-5.5); ALBUMIN/GLOBULIN RATIO 1.3 (1.0-2.2); BILIRUBIN,TOTAL 0.3 mg/dL (0.2-1.0); CALCIUM 8.9 mg/dL (8.5-10.3); CREATININE 4.3 mg/dL (0.6-1.3); POTASSIUM 4.3 mmol/L (3.5-4.5); TOTAL PROTEIN 6.8 g/dL (6.4-8.9)
[2024-04-11 16:39] LABS: PLATELET ESTIMATE, MANUAL DECREASED (<130,000) (NORMAL); PLATELET MORPHOLOGY NORMAL APPEARANCE (NORMAL)
[2024-04-11 18:32] LABS: BILIRUBIN,URINE NEGATIVE (NEGATIVE); GLUCOSE, URINE (UA) NEGATIVE (NEGATIVE); KETONES,URINE (UA) NEGATIVE (NEGATIVE); LEUKOCYTE ESTERASE, URINE NEGATIVE (NEGATIVE); NITRITE,URINE NEGATIVE (NEGATIVE); OCCULT BLOOD,URINE SMALL (NEGATIVE); PROTEIN,URINE 30 mg/dL (NEGATIVE); UROBILINOGEN,URINE 0.2 (NORMAL) E.U./dL (NORMAL)
[2024-04-11 18:44] LABS: CLARITY,URINE CLEAR (CLEAR)
[2024-04-11 18:45] LABS: BACTERIA,URINE None Seen /HPF (None Seen); SQUAMOUS EPITHELIAL CELL,UR RARE Squamous (<= Few); WBC,URINE 0-3 /HPF (0-3)
--- NOTE | 2024-04-11 19:33 | ED Physician Documentation ---
ED Addendum Addendum Addendum: Patient signed out to me awaiting hospitalist change of shift. Patient will need to be admitted for blood transfusion, fluid overload potential and repeat CBC. Reportedly has not been taking his EPO. Is not a dialysis patient. Hospitalist consult placed. Discussed the case with the hospitalist who accepts. Discharge Plan Discharge Patient Disposition: ED Place in Observation Condition: Stable Clinical Impression: Symptomatic anemia Chronic kidney disease Qualifiers: Chronic kidney disease stage: unspecified stage Qualified Code(s): N18.9 - Chronic kidney disease, unspecified Interventions: ED Admission Assessment Last Done: 04/11/24 22:55
[2024-04-11] MEDS: HYDROGEN PEROXIDE 3% 473 ML BOTTLE TOP STA (20:13)
--- NOTE | 2024-04-11 20:54 | HISTORY & PHYSICAL EXAMINATION ---
Chief Complaint Chief Complaint Chief Complaint: generalized weakness History of Present Illness Admitted From Admitted From:: home History Obtained From Records Reviewed: yes History obtained from: patient/, ER staff Exam Limitations: telemedicine History of Present Illness HPI Comment/Other: Mr James is an 78 yo M with history of CKD stage IV, follows with [facility] nephrology, HTN, peripheral neuropathy, anemia of chronic renal disease, COPD. Presents to the ER with complaints of generalized weakness, fatigue. Patient reports he was sitting on the toilet today, felt short of breath and too weak to get up. He was also having back pain (chronic). He reports his last blood transfusion was earlier this year in November, prior to that ~ 2 years ago when he had covid. He denies chest pain, abdominal pain, nausea, vomiting, fevers, chills. Denies any signs of blood loss such as melena, hematochezia, hematemesis or hematuria. Reports compliance with home medications except has not started Epo injections yet. He takes ASA 81 mg daily. Denies shortness of breath at rest at this time, occasional wheezes, uses home inhalers. Denies cough/sputum production. Afebrile. Found to have Hgb 5.5, 2 U PRBC transfusion initiated in ER. [facility] Social History Social History Smoking Status: Former smoker If you are a former smoker, when did you quit? (Date/Year): 2021 Number of Years Smoked: 61 How many cigarettes a day do you smoke? (20 cigarettes=1 Pk): 1 Do you dip or chew tobacco?: No Patient requests smoking cessation consult: No Initiate information on smoking cessation: No Living arrangement: At home Living Condition: With spouse/s.o. Relationship: Home Mobility Equipment: Wheeled walker Do you feel safe in your home environment?: Yes Suffered physical, verbal, emotional, or financial abuse?: No History of Abuse: No POLST Patient has POLST: No POLST Status: Full Code Meds/Allgy Home Medications Ambulatory Orders Medication Instructions Recorded Confirmed cholecalciferol (vitamin D3) 25 50 mcg PO DAILY 02/09/22 04/11/24 mcg (1,000 unit) capsule acetaminophen 500 mg tablet 500 mg PO QID PRN fever or pain 02/20/22 04/11/24 (Acetaminophen Extra Strength) aspirin 81 mg tablet,delayed 81 mg PO DAILY 02/20/22 04/11/24 release albuterol sulfate 90 mcg/actuation 2 puff inhalation QID Shortness Of 06/22/23 04/11/24 aerosol inhaler (Ventolin HFA) Air/Wheezing atorvastatin 10 mg tablet 80 mg PO HS 06/22/23 04/11/24 megestrol 400 mg/10 mL (10 mL) 20 ml PO BID 06/22/23 04/11/24 oral suspension tiotropium bromide 18 mcg capsule 1 puff inhalation BID 06/22/23 04/11/24 with inhalation device (Spiriva with HandiHaler) darbepoetin shelley-albumin 25 mcg/mL 25 mcg .Route UD 04/11/24 04/11/24 in albumin injection ferrous gluconate 324 mg (38 mg 324 mg PO BID 04/11/24 04/11/24 iron) tablet gabapentin 100 mg capsule 100 mg PO TID 04/11/24 04/11/24 metoprolol tartrate 50 mg tablet 50 mg PO BID 04/11/24 04/11/24 sodium bicarbonate 325 mg tablet 975 mg PO DAILY 04/11/24 04/11/24 Allergies Allergies Allergy/AdvReac Type Severity Reaction Status Date / Time No Known Drug Allergies Allergy Verified 04/11/24 14:21 Conclusion/Plan Problem List (1) Symptomatic anemia: Lab Results 04/11/24 15:33 04/11/24 15:33 Other Other Results/Comments: Assessment/Plan: Acute on chronic anemia of renal disease CKD stage IV, follows with [facility] neph[facility] -Patient presents with c/o weakness, dyspnea -Hgb 5.5, etiology unclear, patient denies any signs/symptoms of acute blood loss -Hemodynamically stable, BP 150/71, HR 756 -Pt is prescribed Epo - has not started yet -Continue iron supplements -Consider further outpatient GI work up -Receiving 2 U PRBC in ER -Repeat labs in a.m. Metabolic acidosis 2/2 renal disease -Continue home dose sodium bicarbonate History of poor appetite -Megace BID home med HTN -Continue metoprolol History of CVA/TIA -Hold ASA 81 mg for now to ensure appropriate H&H prior to resuming -Continue statin History of COPD -Continue home inhalers -No signs of acute exacerbation at this time, normal respiratory effort -Nebs PRN DVT ppx; SCDs Review of Systems Constitutional Reports: Fatigue and Weakness; Denies: Fever, Chills, Malaise or Changes in appetite or eating habits Cardiovascular Reports: lightheadedness and shortness of breath with exertion; Denies: chest pain, palpitations or Syncope Respiratory Reports: Shortness of breath and SOB with exertion; Denies: Cough or Sputum production Gastrointestinal Denies: Abdominal pain, Abdominal distention, Nausea, Vomiting, Poor appetite, Diarrhea, Constipation, Rectal bleeding, Melena or Blood in stool Musculoskeletal Reports: Back pain Integumentary/Breast Denies: Rash or Itching Neurological Reports: Headache, General weakness and Dizziness; Denies: Focal weakness or Weakness in extremities Endocrine Reports: Fatigue Hematologic/Lymphatic Reports: Anemia Exam Constitutional normal general appearance and no apparent distress HENMT normocephalic, head/scalp atraumatic and hearing grossly normal bilaterally Respiratory normal respiratory effort and no use of accessory muscles Extremities normal to inspection Neurology no movement abnormality noted and speech normal Psychiatry mental status grossly normal, oriented x3 and cooperative Skin skin color normal and no rash
[2024-04-11] MEDS ORDERED: SODIUM CHLORIDE FLUSH 0.9% 10 ML SYRINGE IVP PRN (21:40)
[2024-04-11] MEDS ORDERED: ACETAMINOPHEN 325 MG TABLET PO PRN (21:40)
[2024-04-11] MEDS ORDERED: ONDANSETRON 4 MG/2 ML VIAL IVP PRN (21:40)
[2024-04-11] MEDS ORDERED: ACETAMINOPHEN 500 MG TABLET PO PRN (21:55)
[2024-04-12] MEDS: SODIUM CHLORIDE FLUSH 0.9% 10 ML SYRINGE IVP SCH
[2024-04-12] MEDS: GABAPENTIN 100 MG CAPSULE PO SCH (00:01)
[2024-04-12] MEDS: IPRATROPIUM 0.2 MG/ML NEB INH SCH (03:48)
[2024-04-12 06:19] LABS: HCT - HEMATOCRIT 20.9 % (42.0-52.0); MEAN CORPUSCULAR HEMOGLOBIN 33.7 pg (27.0-31.0); MEAN CORPUSCULAR HGB CONC 32.1 g/dL (32.0-36.0); MEAN PLATELET VOLUME 9.3 fL (7.4-11.4); RED BLOOD COUNT 1.99 10^6/uL (4.70-6.10); RED CELL DISTRIBUTION WIDTH 17.8 % (12.0-15.0)
[2024-04-12 06:35] LABS: HGB - HEMOGLOBIN 6.7 g/dL (14.0-18.0)
[2024-04-12 06:41] LABS: CALCIUM 8.6 mg/dL (8.5-10.3); CREATININE 3.7 mg/dL (0.6-1.3); POTASSIUM 4.1 mmol/L (3.5-4.5)
[2024-04-12] MEDS: IPRATROPIUM/ALBUTEROL 3 ML NEB INH SCH (07:32)
[2024-04-12] MEDS: SODIUM BICARBONATE 650 MG TABLET PO SCH (08:30)
[2024-04-12] MEDS: METOPROLOL TARTRATE 50 MG TABLET PO SCH (08:30)
[2024-04-12] MEDS: MEGESTROL 400 MG/10 ML UDC PO SCH (08:31)
[2024-04-12] MEDS: FERROUS GLUCONATE 324 MG TABLET PO SCH (08:31)
[2024-04-12] MEDS ORDERED: ALBUTEROL 6.7 GM INHALER INH SCH (09:00)
--- NOTE | 2024-04-12 14:31 | ADVANCE CARE PLANNING NOTE ---
Advance Care Planning Planning Encounter Date: 04/12/24 Time: 14:26 Purpose: DETERMINE GOALS OF CARE Parties in Attendance: Patient, his spouse Adri Cui PA-C Decisional Capacity of the Patient: alert and oriented x 3 with insight into his condition Diagnosis for Encounter (1) Symptomatic anemia: Encounter Subjective/Patient's Story: He is a retired after having spent 24 years in the [employer]. [place] moved [place] with his daughter's family. She is a [place] spouse and her was assigned here to the [place]. Their daughter and her family has since gotten transferred to [facility] but they have stayed on hearing would be. They have enjoyed being a part of their daughter's life. Dung had a COVID infection several years ago which required hospitalization. He has become debilitated after that. He is dependent on a walker and just got a new electric scooter. [facility] [place] [facility] and also has a deicer element winder machine that he will be seeing next month at the [facility] in [place]. Objective/Medical Story: Dung was recently prescribed Procrit. He has not started taking the medication as he was concerned about the side effects. This resulted in him feeling tired weak and rundown and presenting to the emergency department last night. He feels better this afternoon after receiving blood. He is eager to return home this afternoon. Goals of Care: Dung feels that he has had a full life. And he recognizes that at 78 years of age when it is his time it is his time. For that reason he would like a POLST that reads DO NOT RESUSCITATE with selective treatment. He does not want to be completely dependent on others for his care. He is appreciative to his spouse for meeting his care needs and enjoys living independently with her at home. Plan: POLST was completed today DO NOT RESUSCITATE, selective treatment, DO NOT INTUBATE. Code Status: Do Not Attempt Resuscitation Time spent on advance care plannin min
--- NOTE | 2024-04-12 14:45 | PHARMACY PROGRESS NOTE ---
Best Possible Medication History Admit Date and Time: 04/11/24 [id number] [facility] Statement: Per [employer] records, pt interview (PhT), and med list spouse provided. As the person ultimately responsible for medication therapy, providers are able to order a medication from an existing home medication list in [facility] via the "Reconcile Routine" prior to Confirmation of that medication by it support consultant. Such practice is discouraged except when the physician, in their clinical judgment, deems that a medical need exists for a medication without regard to previous use.
--- NOTE | 2024-04-12 15:14 | Discharge Summary ---
"Discharge Summary Admit Date: 04/11/24 Discharge Date: 04/12/24 Discharging Provider: Adri Groves PA-C Primary Care Provider: TOMAS Tee in [facility]. Code Status: Do Not Attempt Resuscitation DIAGNOSES Admission Diagnoses: Acute on chronic anemia of renal disease CKD stage IV Metabolic acidosis secondary to renal disease History of poor appetite Hypertension History of CVA/TIA History of COPD HPI History of Present Illness: Mr James is an 78 yo M with history of CKD stage IV, follows with [facility] nephrology, HTN, peripheral neuropathy, anemia of chronic renal disease, COPD. Presents to the ER with complaints of generalized weakness, fatigue. Patient reports he was sitting on the toilet today, felt short of breath and too weak to get up. He was also having back pain (chronic). He reports his last blood transfusion was earlier this year in November, prior to that ~ 2 years ago when he had covid. He denies chest pain, abdominal pain, nausea, vomiting, fevers, chills. Denies any signs of blood loss such as melena, hematochezia, hematemesis or hematuria. Reports compliance with home medications except has not started Epo injections yet. He takes ASA 81 mg daily. Denies shortness of breath at rest at this time, occasional wheezes, uses home inhalers. Denies cough/sputum production. Afebrile. Found to have Hgb 5.5, 2 U PRBC transfusion initiated in ER. CONSULTS | PROCEDURES Procedures: Patient received 2 units of packed red blood cells this hospitalization. HOSPITAL COURSE Hospital Course: 78-year-old male with history of chronic kidney disease stage IV who follows with nephrology at the [facility]. He states his provider at the clinic in [place]. Also has primary care at the [facility] in [place]. Presented to the emergency department yesterday evening with weakness and fatigue. He has been prescribed EPO injections by nephrology. His is his primary caregiver. She had read the side effects and warnings on the literature supplied with the EPO injections and was concerned about giving this to her . In any event he presented to the emergency department with the above complaints. He was found to have a hemoglobin of 5.5. He was transfused 1 unit overnight his a.m. labs showed a hemoglobin of 6.7 he was transfused 1 additional unit and his hemoglobin alcides to 7.9. Symptomatically the patient felt much improved. Advance care planning discussion was held with the patient and his . POLST was filled out with DNR selective treatment. Patient had sustained a head laceration and had sutures placed on 10 March he believes. These were placed at the emergency department at [facility] in [place]. He had seen his vascular surgeon several weeks after that who believes the suture should not be removed at that time. He has not been able to get back into see a doctor about removing the sutures. I assessed the head wound today there was a large amount of scab material overlying the sutures. We were able to remove some of this but not all of it. We removed some sutures, however with the scab material it appeared that we would create a large wound pulling that off. Therefore I applied a dressing to help soften the scab material in 2 days his will remove the dressing in the shower and reapply dressing to continue to soften it. I have recommended that they see the primary care for further assessment of this wound. ALLERGIES Allergies Allergy/AdvReac Type Severity Reaction Status Date / Time No Known Drug Allergies Allergy Verified 04/11/24 14:21 MEDICATIONS Ambulatory Orders Medication Instructions Recorded Confirmed cholecalciferol (vitamin D3) 25 50 mcg PO DAILY 02/09/22 04/11/24 mcg (1,000 unit) capsule acetaminophen 500 mg tablet 500 mg PO QID PRN fever or pain 02/20/22 04/11/24 (Acetaminophen Extra Strength) aspirin 81 mg tablet,delayed 81 mg PO DAILY 02/20/22 04/11/24 release albuterol sulfate 90 mcg/actuation 2 puff inhalation QID Shortness Of 06/22/23 04/11/24 aerosol inhaler (Ventolin HFA) Air/Wheezing tiotropium bromide 18 mcg capsule 1 puff inhalation BID 06/22/23 04/11/24 with inhalation device (Spiriva with HandiHaler) darbepoetin shelley-albumin 25 mcg/mL 25 mcg .Route UD 04/11/24 04/12/24 in albumin injection ferrous gluconate 324 mg (38 mg 324 mg PO BID 04/11/24 04/11/24 iron) tablet gabapentin 100 mg capsule 100 mg PO TID 04/11/24 04/11/24 metoprolol tartrate 50 mg tablet 50 mg PO BID 04/11/24 04/11/24 sodium bicarbonate 325 mg tablet 975 mg PO DAILY 04/11/24 04/11/24 atorvastatin 40 mg tablet 80 mg (2 x 40 mg) PO HS #30 tabs 04/12/24 atorvastatin 80 mg tablet 80 mg PO QPM 04/12/24 04/12/24 ipratropium 0.5 mg-albuterol 3 mg 3 ml inhalation RTQID #90 mL 04/12/24 (2.5 mg base)/3 mL nebulization soln magnesium oxide 420 mg tablet 420 mg PO BID 04/12/24 04/12/24 megestrol 400 mg/10 mL (10 mL) 800 mg (20 mL) PO BID #300 mL 04/12/24 oral suspension PHYSICAL EXAM AT DISCHARGE General Appearance: positive No acute distress Eyes Bilateral: positive Normal inspection ENT: positive ENT inspection nml Neck: positive Nml inspection Respiratory: positive No respiratory distress and Breath sounds nml Cardiovascular: positive Regular rate & rhythm Abdomen: positive No distention Skin: positive Color nml and Other (Wound at the vertex of the scalp. Sutures were removed as I was able. There is thick amount of scab material on top of this wound. Dressing with Xeroform and Mepilex was applied to soften the eschar.) Extremities: positive Non-tender and No pedal edema Neurologic/Psychiatric: positive Oriented x3 LABS 04/12/24 14:50 04/12/24 05:55 FOLLOW UP Follow Up: PCP at the [facility]. Nephrology at the [facility]. TIME SPENT Time Spent in Discharge (Minutes): 45 Discharge Plan Discharge Patient Disposition: Home, Self Care Condition: Stable Medically Cleared Date:: 04/12/24 Prescriptions: New atorvastatin 40 mg Tablet 80 mg PO HS Qty: 30 0RF ipratropium-albuterol 0.5 mg-3 mg(2.5 mg base)/3 mL Solution For Nebulization 3 ml inhalation RTQID Qty: 90 0RF megestrol 400 mg/10 mL (10 mL) Suspension 800 mg PO BID Qty: 300 0RF Continued cholecalciferol (vitamin D3) 25 MCG capsule 50 mcg PO DAILY aspirin 81 MG tablet,delayed release (DR/EC) 81 mg PO DAILY acetaminophen [Acetaminophen Extra Strength] 500 MG tablet 500 mg PO QID PRN (Reason: fever or pain) albuterol sulfate [Ventolin HFA] 200 PUFFS/18 GM HFA aerosol inhaler 2 puff inhalation QID tiotropium bromide [Spiriva with HandiHaler] 18 MCG capsule, w/inhalation device 1 puff inhalation BID metoprolol tartrate 50 mg tablet 50 mg PO BID gabapentin 100 mg capsule 100 mg PO TID ferrous gluconate 324 mg (38 mg iron) tablet 324 mg PO BID sodium bicarbonate 325 mg tablet 975 mg PO DAILY darbepoetin shelley-albumin 25 mcg/mL solution 25 mcg .Route UD Patient Comments: Pt receives every 1 weeks atorvastatin 80 mg tablet 80 mg PO QPM Rx Instructions: take 1 tablet at bedtime magnesium oxide 420 mg tablet 420 mg PO BID Diet: Low Sodium Health Concerns: You came into the hospital because you had generalized weakness. It turns out that you felt so weak because your blood count was very low. While you have been here you have gotten 2 units of red blood cells. That has helped you feel much better. Your primary care doctor had prescribed a medication called Procrit to you. This medication helps you make red blood cells. The reason you need this medication is because your kidneys are not telling your body to make the red blood cells that you need. From this point forward what I would recommend that you do is call your doctor and get a blood test done in the next week to make sure that you need the Procrit medication. You will need to get periodic blood tests before you give yourself the medication because we need to make sure that your body is requiring it. This will help prevent side effects and complications. You are leaving the hospital today with a hemoglobin count of 7.9. This is high enough that you no longer need blood transfusions but definitely well below normal. I want you to continue all of your medications as you had been taking them before you came into the hospital. There should be no changes to your current medications. With regards to the wound on top of your head, I believe that I got most of the sutures out. However, there is a lot of scabbing that needs to be broken up in that area. Leave the dressing on that I placed on it today until Tuesday. On Tuesday get into the shower and wash your hair. It will be easiest to remove this dressing under running water. I would like your primary care doctor to look at the wound on top of your head sometime in the next 10 days. I cannot guarantee to you that I got all of the sutures out because of the amount of scabbing and I really would like someone else to look at it once we have had an opportunity to clean up some of the scabbing. Today before you left we filled out a form called a POLST. That form designate your is your medical decision maker. It also has details including DO NOT RESUSCITATE with something that we call selective treatment. I have given you a copy of this form and I would like you to carry this copy to your primary care doctor. The original green copy should be hung in your home in a prominent place. Thank you for entrusting us with your care. Please return to the hospital for any recurrence of symptoms. Patient Instructions: Kidney Disease Take Iron Anemia, Kidney Disease Calcium Phosphorus, Kidney Disease Avoid High Sodium Follow-up Care: LUKE TEE MD [Primary Care Provider] -"
[2024-04-12 17:10] VITALS: O2SAT 94
[2024-04-12] MEDS ORDERED: ATORVASTATIN 40 MG TABLET PO SCH (21:00)
== END 2024-04-12 17:28 | disposition home or self-care (01) ==
LOC: MS2 14:04 → ED 14:04 → MS2 22:55
PROVIDERS: ADMIT Student in an Organized Health Care Education/Training Program; ATTEND Student in an Organized Health Care Education/Training Program